=== PATIENT | female | born 1985 | race Caucasian/White ===

== ENCOUNTER → 2016-09-12 | Outpatient (CLI) | payer BC ==
[~2016-09-12] MED LIST: DIPH25CA65 PO; DXY100 PO; IBUP-103 PO; MOME6000 NAE; OXYC-57 PO; OXYC5TAB PO
--- NOTE | 2016-09-12 13:31 | DIAGNOSTIC IMAGING REPORT ---
ULTRASOUND OF THE THYROID GLAND CLINICAL HISTORY: Lymphadenopathy. COMPARISON STUDY: No priors. TECHNIQUE: Real-time, grayscale, and color flow sonography of the thyroid gland is performed utilizing a high-frequency linear transducer. Images are reviewed in the transverse and longitudinal planes. FINDINGS: Right lobe: The right lobe of the thyroid gland is normal in size and homogeneous in echotexture, measuring 4.4 x 1.6 x 1.2 cm. Left lobe: The left lobe of the thyroid gland is normal in size and homogeneous in echotexture, measuring 4.3 x 1.5 x 1.2 cm. Isthmus: The thyroid isthmus is normal in appearance and measures 0.3 cm in AP diameter. Soft tissues: Survey images of the stranding soft tissues show scattered benign-appearing cervical lymph nodes. These measure up to 7 mm in short axis. IMPRESSION: 1. Unremarkable sonographic assessment of the thyroid gland. 2. There are scattered benign-appearing cervical lymph nodes incidentally identified. Clinical follow-up only is recommended. Electronically signed by: Randell Lundberg M.D. 09/12/2016 1:30 PM Dictated Date/Time: 09/12/2016 1:29 PM
== END | disposition home or self-care (01) ==
LOC: C.ULTR 12:39
PROVIDERS: ATTEND Nurse Practitioner Family
DX: E01.0 Iodine-deficiency related diffuse (endemic) goiter (principal); R59.9 Enlarged lymph nodes, unspecified

== ENCOUNTER → 2016-09-12 | Outpatient (CLI) | payer BC ==
[2016-09-12 13:15] LABS: BASO % 0.5 %; BASO ABS # 0.03 K/uL (0-0.2); COMPLETE YES; EOS % 1.3 %; HEMATOCRIT 37.7 % (37-47); IG% 0.2 %; LYMPH % 23.4 %; LYMPH ABS # 1.41 K/uL (1.2-3.4); MEAN CELL VOLUME 87.3 fL (80-100); MEAN CORPUSCULAR HEMOGLOBIN 29.9 pg (25-34); MEAN CORPUSCULAR HGB CONC 34.2 g/dl (32-36); MEAN PLATELET VOLUME 10.6 fL (7.4-10.4); MONO % 4.6 %; PLATELET COUNT 259 K/uL (130-400); RED BLOOD COUNT 4.32 M/uL (4.2-5.4); WHITE BLOOD COUNT 6.03 K/uL (4.8-10.8)
[2016-09-12 13:51] LABS: ALB/GLOB RATIO 1.1 (0.9-2); ALKALINE PHOSPHATASE 46 U/L (45-117); ALT/SGPT 20 U/L (12-78); AST/SGOT 10 U/L (15-37); BLOOD UREA NITROGEN 19 mg/dl (7-18); BUN/CREATININE RATIO 26.1 (10-20); CALCIUM 8.9 mg/dl (8.5-10.1); CARBON DIOXIDE 25 mmol/L (21-32); CHLORIDE 105 mmol/L (98-107); CREATININE 0.71 mg/dl (0.60-1.20); GLUCOSE 77 mg/dl (70-99); POTASSIUM 3.7 mmol/L (3.5-5.1); SODIUM 140 mmol/L (136-145)
[2016-09-12 13:54] LABS: RUBELLA SCREEN IgG (AT CCH) IMMUNE (IMMUNE)
[2016-09-12 14:22] LABS: LYME DISEASE AB IGG NEG (NEG); LYME DISEASE AB IGM NEG (NEG)
[2016-09-15 01:42] LABS: VARICELLA ZOS VIR IGG VALUE <0.91 INDEX
--- NOTE | 2016-09-19 10:11 | CODING QUERY MEDICAL NECESSITY ---
SUPPORTING DIAGNOSIS NEEDED A supporting diagnosis is required for the test/procedure performed on this patient in order for us to be reimbursed by the patient's insurance. Please provide a supporting diagnosis for the following test/procedure listed below next to the test name along with your signature. *If there is no additional diagnosis for this patient that would support the following test/procedure please document that below next to the test/procedure. Test(s)/Procedure(s) that require a supporting diagnosis: DOS 09/12 * Vitamin D DIAGNOSIS: * RPR DIAGNOSIS: Provider Signature: Date: Thank you Mera Ley Health Information Management Once completed, please kindly fax back to [phone] For questions please call [phone]
== END | disposition home or self-care (01) ==
LOC: C.LAB1850 11:46
PROVIDERS: ATTEND Nurse Practitioner Family
DX: Z01.83 Encounter for blood typing (principal); Z11.59 Encounter for screening for other viral diseases; Z11.3 Encounter for screening for infections with a predominantly sexual mode of transmission; Z11.4 Encounter for screening for human immunodeficiency virus [HIV]; Z13.0 Encounter for screening for diseases of the blood and blood-forming organs and certain disorders involving the immune mechanism; Z13.21 Encounter for screening for nutritional disorder; R59.9 Enlarged lymph nodes, unspecified; E01.0 Iodine-deficiency related diffuse (endemic) goiter

== ENCOUNTER 2016-11-13 05:27 | Day surgery (SDC) | payer BC ==
[2016-10-25 09:31] VITALS: BMI 25.0
--- NOTE | 2016-10-25 09:54 | PAT Medication Instructions ---
Service Date October 25, 2016. Current Home Medication List Diphenhydramine Hcl (Benadryl Allergy), 1 CAP PO DAILY PRN for prn Ibuprofen Tab (Advil), 200-600 MG PO Q4H PRN for Pain Mometasone Furoate (Nasal) (Mometasone Furoate), 1-2 SPRAYS JOHN PRN Medication Instructions For Your Scheduled Surgery - Check with surgeon for instructions: Ibuprofen Tab (Advil), 200-600 MG PO Q4H PRN for Pain - Hold the following medications the morning of surgery: Diphenhydramine Hcl (Benadryl Allergy), 1 CAP PO DAILY PRN for prn - Take the following medications the morning of surgery with a sip of water: Mometasone Furoate (Nasal) (Mometasone Furoate), 1-2 SPRAYS JOHN PRN - Take the following medications as scheduled the night before surgery: Mometasone Furoate (Nasal) (Mometasone Furoate), 1-2 SPRAYS JOHN PRN Diphenhydramine Hcl (Benadryl Allergy), 1 CAP PO DAILY PRN for prn If you have any questions please call us at [phone] (Kathleen Corona PA-C) or [phone] or [phone]
[2016-10-25 10:49] LABS: BASO % 0.5 %; BASO ABS # 0.03 K/uL (0-0.2); COMPLETE YES; EOS % 2.2 %; HEMATOCRIT 42.8 % (37-47); IG% 0.2 %; LYMPH ABS # 1.87 K/uL (1.2-3.4); MEAN CELL VOLUME 88.8 fL (80-100); MEAN CORPUSCULAR HEMOGLOBIN 29.3 pg (25-34); MEAN CORPUSCULAR HGB CONC 32.9 g/dl (32-36); MEAN PLATELET VOLUME 10.6 fL (7.4-10.4); MONO % 6.5 %; NEUT % 59.6 %; PLATELET COUNT 267 K/uL (130-400); RED BLOOD COUNT 4.82 M/uL (4.2-5.4); WHITE BLOOD COUNT 6.03 K/uL (4.8-10.8)
[~2016-11-13] VITALS: Ht 157.5 cm; Wt 63.5 kg
[~2016-11-13 05:27] MED LIST changes: -DXY100 PO; -OXYC-57 PO; -OXYC5TAB PO
[2016-11-13 05:59] VITALS: BP 135/73; PULSE 76; TEMP 36.8; O2SAT 100; Ht 157.5 cm; Wt 63.5 kg
[2016-11-13] MEDS ORDERED: DOXYCYCLINE HYCLATE 100 MG CAP PO SCH ×2 (06:00→08:00)
[2016-11-13] MEDS ORDERED: LACTATED RINGER'S 1000ML 1,000 ML IV SCH ×2 (06:00)
[2016-11-13] MEDS ORDERED: ONDANSETRON INJ 2 MG/ML 2 ML VIAL ONE (06:40)
[2016-11-13] MEDS ORDERED: LIDOCAINE HCL 2% 2 ML VIAL (20MG/ML) ONE (06:40)
[2016-11-13] MEDS ORDERED: NEOSTIGMINE METHYLSULFATE 5 MG/5 ML SYR ONE (06:40)
[2016-11-13] MEDS ORDERED: PROPOFOL IV EMULSION 10 MG/ML 20 ML VIAL IV ONE (06:40)
[2016-11-13] MEDS ORDERED: MIDAZOLAM HCL 1 MG/ML 2ML VIAL ONE ×2 (06:40→07:23)
[2016-11-13] MEDS ORDERED: DEXAMETHASONE SOD INJ 4 MG/ML VIAL ONE (06:40)
[2016-11-13] MEDS ORDERED: ROCURONIUM BROMIDE 10 MG/ML 5 ML VIAL ONE (06:40)
[2016-11-13] MEDS ORDERED: GLYCOPYRROLATE INJ 0.2 MG/ML VIAL ONE ×2 (06:40→08:19)
[2016-11-13] MEDS ORDERED: FENTANYL CITRATE INJ 50 MCG/1 ML 2 ML VIAL ONE ×2 (06:40→07:58)
--- NOTE | 2016-11-13 07:06 | History & Physical Bridge Note ---
H&P Re-Evaluation Bridge Note: I have examined the patient, reviewed the History & Physical and in the interval since the performance of the History & Physical I have noted the following changes of clinical significance: No changes noted
[2016-11-13] MEDS ORDERED: METHYLENE BLUE 0.5% 10 ML VIAL ONE (07:10)
[2016-11-13] MEDS ORDERED: BUPIVACAINE 0.5 % 5 MG/1 ML MPF 30ML VIAL ONE (07:10)
[2016-11-13] MEDS ORDERED: ONDANSETRON INJ 2 MG/ML 2 ML VIAL IV PRN ×2 (07:30→08:30)
[2016-11-13] MEDS ORDERED: EpHEDrine SULFATE INJ 50 MG/ML AMP IV PRN (07:30)
[2016-11-13] MEDS ORDERED: ATROPINE SULFATE 0.1 MG/ML 5ML SYR IV PRN (07:30)
[2016-11-13] MEDS ORDERED: HYDROmorphone INJ 1 MG/ML SYR IV PRN (07:30)
[2016-11-13] MEDS ORDERED: PROMETHAZINE HCL INJ 6.25 MG in SODIUM CHLORIDE 0.9% 50ML 50 ML IV PRN (07:30)
[2016-11-13] MEDS ORDERED: SODIUM CHLORIDE 0.9% 1000ML 1,000 ML IV SCH (08:26)
--- NOTE | 2016-11-13 08:27 | [facility] Post Operative Brief Note ---
Immediate Operative Summary Operative Date November 13, 2016. Pre-Operative Diagnosis Tubal disease and pain Post-Operative Diagnosis Same as preop Procedure(s) Performed Robotic-assisted laparoscopic Bilateral Salpingectomy Surgeon Dr. Bush Full Stack Engineer Surgeon(s) . Estimated Blood Loss 5 cc Findings Bilateral dilated tubes, bilateral paratubal cysts Specimens A: right and left fallopian tubes Drains None Anesthesia General Complication(s) None Disposition Recovery Room / PACU
--- NOTE | 2016-11-13 08:28 | Discharge Instructions ---
Discharge Instructions Date of Service November 13, 2016. Admission Reason for Admission: Hydrosalpinx Discharge Discharge Diagnosis / Problem: pelvic pain Discharge Goals Goal(s): Routine recovery after surgery Activity Recommendations Activity Limitations: per Instructions/Follow-up section . Instructions / Follow-Up Instructions / Follow-Up ACTIVITY RECOMMENDATIONS: * Rest the first 2-3 days. You should be back to your normal activity levels by day 3. * No heavy lifting for 2 weeks. * No intercourse, tampons or douching for 1-2 weeks. * You may shower the next day. * Do not drive anytime that you are taking narcotic pain medicines. RETURN TO SCHOOL/WORK: * May return to school or work after 2-3 days. DIET: Nausea may occur in the immediate post-operative period. If so, take clear liquids such as tea, bouillon, apple juice until all nausea has subsided, then resume usual diet. MEDICATIONS: Resume previous medications unless instructed otherwise by your surgeon. Ibuprofen 200mg 2-3 tablets every 4-6 hours as needed -- OR -- Aleve 2 tablets every 8-12 hours as needed for post-operative discomfort Medications are over the counter. Tylenol may be used if above medications are contraindicated or not preferred. Medication should be taken with food or milk. Do not take on an empty stomach. SPECIAL CARE INSTRUCTIONS: * Check temperature twice daily for one week. report any elevation over 101 degrees. * You may experience some vagina spotting and/or bleeding. This is normal for 1 -2 weeks and should not be heavier than a normal period. If it is unusual in amount, call your physician. * Post-operative discomfort may consist of a sore throat, a "bloated" feeling and pain in the shoulders. these are normal symptoms, which usually only last for 2-3 days. * Remove band-aids tomorrow and shower. There is no need to replace band-aids unless there is drainage or discomfort. FOLLOW UP VISIT: Call your doctor's office for a post-operative 2 week visit if not already scheduled. Current Hospital Diet Patient's current hospital diet: Discharge Diet Recommended Diet: Regular Diet Procedures Procedures Performed: Robotic-assisted laparoscopic Bilateral Salpingectomy Pending Studies Studies pending at discharge: no Medical Emergencies . Who to Call and When: Medical Emergencies: If at any time you feel your situation is an emergency, please call 911 immediately. . Non-Emergent Contact Non-Emergency issues call your: Refrigeration Mechanic . . "Provider Documentation" section prepared by Andrew Bush. . VTE Core Measure Inpt VTE Proph given/why not?: Treatment not indicated
[2016-11-13] MEDS ORDERED: OXYC-57 PO (08:29)
[2016-11-13] MEDS ORDERED: DXY100 PO (08:29)
[2016-11-13] MEDS ORDERED: PROMETHAZINE HCL INJ 25 MG in SODIUM CHLORIDE 0.9% 50ML 50 ML IV PRN (08:30)
[2016-11-13] MEDS ORDERED: OXYCODONE/ACETAMINOPHEN 5-325 TAB PO PRN ×2 (08:30)
[2016-11-13] MEDS ORDERED: KETOROLAC TROMETHAMINE 30 MG/ML VIAL IV. PRN (08:30)
[2016-11-13] MEDS ORDERED: IBUPROFEN 600 MG TAB PO PRN (08:30)
[2016-11-13] MEDS: FENTANYL CITRATE INJ 50 MCG/1 ML 2 ML VIAL IV PRN ×3 (08:46→08:56)
--- NOTE | 2016-11-13 09:35 | OPERATIVE REPORT ---
DATE OF OPERATION: 11/13/2016 PREOPERATIVE DIAGNOSES: Fallopian tube disease and pelvic pain. POSTOPERATIVE DIAGNOSES: Same. PROCEDURE: Robotically assisted bilateral salpingectomy. SURGEON: Dr. Bush. PROJECT LEADER: None. ESTIMATED BLOOD LOSS: 5 mL. FINDINGS: Bilateral dilated tubes and paratubal cysts. SPECIMENS: Right and left fallopian tubes. DRAINS: None. ANESTHETIC: General. COMPLICATIONS: None. DISPOSITION: Recovery room. DESCRIPTION OF PROCEDURE: The patient was given a general anesthetic, prepped and draped in dorsolithotomy position; doxycycline had been given preoperatively orally. Shaver catheter placed in her bladder and a cervical acorn manipulator placed in the cervix. Gloves changed and the same umbilical incision was entered with scalpel, open Ibrahima technique, we cut down carefully to subcutaneous fat to the fascia was opened in midline, splitting the rectus muscles and entering the peritoneal cavity without difficulty. Blunt-tipped Ibrahima trocar then placed. Balloon inflated. CO2 gas used to inflate the abdomen. FINDINGS: Upper abdomen before Trendelenburg appeared normal, no bleeding or sign of injury. Deep Trendelenburg position then obtained and was able to view the pelvis. Both fallopian tubes were dilated and also had large paratubal cyst as well. Per discussions with the patient because of pain and abnormal tubes, she wished to have fallopian tubes removed. We placed 2 laparoscopic ports, 1 in the left, 1 in the right, 8 mm robotic ports and then docked the robot using bipolar [place] in arm 2 and monopolar holley in arm 1. I was able to carefully remove the tube so as not to compromise the blood supply to either ovary. We started first with the right fallopian tube and then the left. We removed as much tube as possible down to the level of the uterus. These were then placed in the pelvis and the robot was undocked. Using a 5 mm camera to one of the robotic ports, I was able to then place a 10 mm bag and both tubes were then placed in this and removed the bag. Once the tubes were removed, on reinspection again no bleeding was visualized, gas allowed to escape, and ports removed. Incisions all injected with 0.5% Marcaine. Fascia closed carefully with 0 Vicryl in the umbilical incision and then deep subcutaneous fat sutures and then 4-0 subcuticular Monocryl closures. Sponge and instrument counts were correct. I attest to the content of the Intraoperative Record and any orders documented therein. Any exceptions are noted below. MTDD
[2016-11-13] MEDS ORDERED: KETOROLAC TROMETHAMINE 30 MG/ML VIAL ONE (09:45)
--- NOTE | 2016-11-13 09:49 | Anesthesiology Progress Note ---
Anesthesia Post Op Note Date & Time November 13, 2016 at 09:50 Vital Signs Pain Intensity: 3 Vital Signs Past 12 Hours Date Time Temp Pulse Resp B/P Pulse Ox O2 Delivery O2 Flow Rate FiO2 11/13/16 09:15 36.4 75 12 105/65 100 Nasal Cannula 2 11/13/16 09:05 61 10 102/67 97 Room Air 11/13/16 08:55 60 13 106/73 100 Mask 10 11/13/16 08:45 67 19 113/78 100 Mask 10 11/13/16 08:38 36.0 87 17 112/75 100 Mask 10 11/13/16 05:59 36.8 76 18 135/73 100 Room Air Notes Mental Status: alert / awake / arousable, participated in evaluation Pt Amnestic to Procedure: Yes Nausea / Vomiting: adequately controlled Pain: adequately controlled Airway Patency, RR, SpO2: stable & adequate BP & HR: stable & adequate Hydration State: stable & adequate Anesthetic Complications: no major complications apparent
[2016-11-13] MEDS ORDERED: OXYCODONE/ACETAMINOPHEN 5-325 TAB ONE (10:07)
[2016-11-13 10:30] VITALS: BP 99/55; PULSE 74; TEMP 36.4; O2SAT 98
== END 2016-11-13 10:40 | disposition home or self-care (01) ==
LOC: C.ACU 05:27
PROVIDERS: ATTEND Obstetrics & Gynecology
DX: N83.9 Noninflammatory disorder of ovary, fallopian tube and broad ligament, unspecified (principal); N80.9 Endometriosis, unspecified; D28.2 Benign neoplasm of uterine tubes and ligaments; E66.9 Obesity, unspecified; Z80.42 Family history of malignant neoplasm of prostate; F17.210 Nicotine dependence, cigarettes, uncomplicated; Z68.25 Body mass index [BMI] 25.0-25.9, adult; Z98.818 Other dental procedure status; Z90.89 Acquired absence of other organs
CPT/HCPCS: 58661; S2900

== ENCOUNTER → 2016-12-25 | Outpatient (CLI) | payer BC ==
[~2016-12-25] MED LIST changes: +DXY100 PO; +OXYC-57 PO
--- NOTE | 2016-12-25 13:00 | DIAGNOSTIC IMAGING REPORT ---
RENAL ULTRASOUND HISTORY: Pain R10.2 Pelvic pain in female with pelvic pain when she has a fu COMPARISON: None. FINDINGS: Right kidney: Maximum dimension 10.3 cm. No evidence for hydronephrosis. Normal corticomedullary differentiation and cortical thickness. Left kidney: Maximum dimension 11.1 cm. No evidence for hydronephrosis. Normal corticomedullary differentiation and cortical thickness. Bladder: No bladder wall thickening. The bilateral ureteral jets were identified. IMPRESSION: Normal renal ultrasound. Electronically signed by: Mina Jacobsen M.D. 12/25/2016 12:59 PM Dictated Date/Time: 12/25/2016 12:55 PM
== END | disposition home or self-care (01) ==
LOC: C.ULTR 12:30
PROVIDERS: ATTEND Family Medicine
DX: R10.2 Pelvic and perineal pain (principal)

== ENCOUNTER → 2017-02-12 | Outpatient (CLI) | payer BC | END | disposition home or self-care (01) | LOC: C.LABSPEC 17:05 | PROVIDERS: ATTEND Nurse Practitioner Family | DX: R10.2 Pelvic and perineal pain (principal); R30.0 Dysuria ==

== ENCOUNTER → 2017-03-13 | Outpatient (CLI) | payer BC | END | disposition home or self-care (01) | LOC: C.LAB1850 08:07 | PROVIDERS: ATTEND Specialist | DX: Z31.41 Encounter for fertility testing (principal); O09.00 Supervision of pregnancy with history of infertility, unspecified trimester; Z3A.00 Weeks of gestation of pregnancy not specified ==

== ENCOUNTER → 2017-03-19 | Outpatient (CLI) | payer BC | END | disposition home or self-care (01) | LOC: C.LAB 12:22 | PROVIDERS: ATTEND Specialist | DX: Z31.41 Encounter for fertility testing (principal) ==

== ENCOUNTER → 2017-04-13 | Outpatient (CLI) | payer BC | END | disposition home or self-care (01) | LOC: C.LAB 09:25 | PROVIDERS: ATTEND Specialist | DX: O09.00 Supervision of pregnancy with history of infertility, unspecified trimester (principal); Z3A.00 Weeks of gestation of pregnancy not specified ==

== ENCOUNTER → 2017-05-03 | Outpatient (CLI) | payer BC | END | disposition home or self-care (01) | LOC: C.LAB1850 08:12 | PROVIDERS: ATTEND Specialist | DX: Z31.41 Encounter for fertility testing (principal); O09.00 Supervision of pregnancy with history of infertility, unspecified trimester ==

== ENCOUNTER → 2017-05-16 | Outpatient (CLI) | payer BC | END | disposition home or self-care (01) | LOC: C.LAB1850 08:15 | PROVIDERS: ATTEND Specialist | DX: Z31.41 Encounter for fertility testing (principal) ==

== ENCOUNTER → 2017-06-06 | Outpatient (CLI) | payer BC | END | disposition home or self-care (01) | LOC: C.LAB1850 09:42 | PROVIDERS: ATTEND Specialist | DX: O09.00 Supervision of pregnancy with history of infertility, unspecified trimester (principal); Z3A.00 Weeks of gestation of pregnancy not specified ==

== ENCOUNTER → 2017-06-08 | Outpatient (CLI) | payer BC | END | disposition home or self-care (01) | LOC: C.LAB1850 11:44 | PROVIDERS: ATTEND Specialist | DX: O09.00 Supervision of pregnancy with history of infertility, unspecified trimester (principal) ==

== ENCOUNTER → 2017-06-28 | Outpatient (CLI) | payer OTHER | END | disposition home or self-care (01) | LOC: C.PAPS 14:36 | PROVIDERS: ATTEND Obstetrics & Gynecology | DX: Z12.4 Encounter for screening for malignant neoplasm of cervix (principal) ==

== ENCOUNTER → 2017-06-28 | Outpatient (CLI) | payer OTHER ==
[~2017-06-28] MED LIST changes: +ACET-1175 PO; +FERR1TAB23 PO; +MTR600X PO; +PRENTAB26 PO
[2017-06-28 11:27] LABS: BASO % 0.3 %; BASO ABS # 0.03 K/uL (0-0.2); EOS ABS # 0.56 K/uL (0-0.5); HEMATOCRIT 40.6 % (37-47); IG# 0.03 K/uL (0.00-0.02); LYMPH % 16.1 %; MEAN CELL VOLUME 87.3 fL (80-100); MEAN CORPUSCULAR HEMOGLOBIN 30.1 pg (25-34); MEAN CORPUSCULAR HGB CONC 34.5 g/dl (32-36); MEAN PLATELET VOLUME 11.5 fL (7.4-10.4); MONO % 4.7 %; MONO ABS # 0.44 K/uL (0.11-0.59); NEUT % 72.6 %; NEUT ABS # 6.73 K/uL (1.4-6.5); PLATELET COUNT 283 K/uL (130-400); RED CELL DISTRIBUTION WIDTH CV 12.7 % (11.5-14.5); RED CELL DISTRIBUTION WIDTH SD 40.4 fL (36.4-46.3); WHITE BLOOD COUNT 9.29 K/uL (4.8-10.8)
== END | disposition home or self-care (01) ==
LOC: C.LAB1850 09:52
PROVIDERS: ATTEND Obstetrics & Gynecology
DX: O09.811 Supervision of pregnancy resulting from assisted reproductive technology, first trimester (principal); Z3A.00 Weeks of gestation of pregnancy not specified

== ENCOUNTER → 2017-08-23 | Outpatient (CLI) | payer OTHER ==
[~2017-08-23] MED LIST changes: -ACET-1175 PO; -FERR1TAB23 PO; -MTR600X PO; -PRENTAB26 PO
== END | disposition home or self-care (01) ==
LOC: C.LAB1850 10:26
PROVIDERS: ATTEND Obstetrics & Gynecology
DX: O09.812 Supervision of pregnancy resulting from assisted reproductive technology, second trimester (principal); Z3A.00 Weeks of gestation of pregnancy not specified

== ENCOUNTER → 2018-01-10 | Outpatient (CLI) | payer OTHER ==
[~2018-01-10] MED LIST changes: +ACET-1175 PO; -DXY100 PO; +FERR1TAB23 PO; -IBUP-103 PO; +MTR600X PO; +PRENTAB26 PO
== END | disposition home or self-care (01) ==
LOC: C.LABSPEC 10:41
PROVIDERS: ATTEND Obstetrics & Gynecology
DX: O30.003 Twin pregnancy, unspecified number of placenta and unspecified number of amniotic sacs, third trimester (principal); Z3A.00 Weeks of gestation of pregnancy not specified

== ENCOUNTER 2018-01-14 05:14 | Inpatient (IN) | payer OTHER ==
--- NOTE | 2018-01-08 11:35 | PAT Medication Instructions ---
Service Date Jan 08, 2018. Current Home Medication List Acetaminophen (Tylenol), 325 MG PO for Pain Diphenhydramine Hcl (Benadryl Allergy), 1 CAP PO DAILY PRN for prn Ferrous Sulfate (Iron), 1 TAB PO noon Mometasone Furoate (Nasal) (Mometasone Furoate), 1-2 SPRAYS JOHN PRN Multivit/Min/Iron/Fol Ac/Pren ( Vitamin), 1 TAB PO QAM Medication Instructions For Your Scheduled Surgery - Hold the following medications the morning of surgery: Acetaminophen (Tylenol), 325 MG PO for Pain Diphenhydramine Hcl (Benadryl Allergy), 1 CAP PO DAILY PRN for prn Multivit/Min/Iron/Fol Ac/Pren ( Vitamin), 1 TAB PO QAM - Take the following medications the morning of surgery: Mometasone Furoate (Nasal) (Mometasone Furoate), 1-2 SPRAYS JOHN PRN (if needed) - Take the following medications as scheduled the night before surgery: Acetaminophen (Tylenol), 325 MG PO for Pain (if needed) Diphenhydramine Hcl (Benadryl Allergy), 1 CAP PO DAILY PRN for prn (if needed) Ferrous Sulfate (Iron), 1 TAB PO noon If you have any questions please call us at [phone] or [phone] or [phone]
[2018-01-08 12:38] LABS: BASO % 0.2 %; BASO ABS # 0.03 K/uL (0-0.2); EOS % 0.8 %; HEMATOCRIT 36.9 % (37-47); HEMOGLOBIN 12.2 g/dL (12.0-16.0); IG# 0.23 K/uL (0.00-0.02); LYMPH % 15.3 %; LYMPH ABS # 1.96 K/uL (1.2-3.4); MEAN CELL VOLUME 87.9 fL (80-100); MEAN CORPUSCULAR HGB CONC 33.1 g/dl (32-36); MEAN PLATELET VOLUME 12.9 fL (7.4-10.4); MONO % 5.4 %; MONO ABS # 0.69 K/uL (0.11-0.59); NEUT % 76.5 %; NEUT ABS # 9.79 K/uL (1.4-6.5); PLATELET COUNT 159 K/uL (130-400); RED CELL DISTRIBUTION WIDTH CV 16.1 % (11.5-14.5); RED CELL DISTRIBUTION WIDTH SD 51.2 fL (36.4-46.3)
--- NOTE | 2018-01-11 17:46 | HISTORY & PHYSICAL EXAMINATION ---
DATE OF ADMISSION: 01/14/2018 HISTORY OF PRESENT ILLNESS: Whit's due date is 02/07/2017, she will be 36 weeks and 4 days for scheduled section. She has a twin gestation. The reason this is speed up and being done prior to 38 weeks is that she has cholestasis of , thus recommendation is delivery between 36 and 37 weeks. The patient understands the rationale for delivery. HISTORY: As mentioned, she has twin gestation. She has been monitored closely for growth and the first baby is in breech position, thus, the recommendation for section. She has been diagnosed of cholestasis of with bile salts being elevated; thus, the recommendation for early delivery. PAST MEDICAL HISTORY: She is healthy. PAST SURGICAL HISTORY: She has had a prior laparoscopy for pelvic pain. Dictation ends here. This was cutoff mid dictation, Pls see other H+P for full note MTDD
--- NOTE | 2018-01-11 17:49 | HISTORY & PHYSICAL EXAMINATION ---
DATE OF ADMISSION: 01/14/2018 Her due date is 02/07/2018. HISTORY OF PRESENT ILLNESS: Whit has a twin gestation and intrahepatic cholestasis of . The recommendation for delivery is between 36 and 37 weeks and she has been scheduled to be delivered on the day of 01/14/2018. The as mentioned has been complicated by intrahepatic cholestasis of and also twin gestation in which the first baby is in breech presentation. The babies have grown well and she has not had any other complications of . HISTORY: She is Rh negative and has had negative echocardiogram on her testing as well. MEDICAL HISTORY: History of depression and piriformis syndrome. PAST SURGICAL HISTORY: Prior laparoscopy for pelvic pain. PAST OBSTETRICAL HISTORY: No prior pregnancies. REVIEW OF SYSTEMS: Negative. PHYSICAL EXAMINATION: VITAL SIGNS: Stable. She is afebrile. Weight is 194 pounds. CHEST: Clear. CARDIOVASCULAR: Normal rate and rhythm. No audible murmur. ABDOMEN: Gravid. heart is confirmed by ultrasound. First baby has fluctuated between breech and vertex position. CERVIX: Closed and 50%. IMPRESSION AND PLAN: The patient has intrahepatic cholestasis of . Recommendation is delivery between 36 and 37 weeks, but she will be 36 weeks and 4 days on 01/14/2018 and is scheduled for . Reviewed the risks including bleeding, infection, injury to bowel, bladder, ureter, vessels, deep vein thrombosis, pulmonary embolus, and possible injury to the babies. We discussed increased risks also with twin gestation including with bleeding. The patient was offered vaginal delivery and declined and has made arrangements for section, full informed consent and she is aware of her other options. MILLICENT
[2018-01-14] VITALS (12 sets, daily range): BP systolic 120–132; BP diastolic 76–89; PULSE 79–90; TEMP 36.8–37.2; O2SAT 98–100; Ht 157.5 cm; Wt 89.5 kg
[~2018-01-14] VITALS: Ht 157.5 cm; Wt 89.5 kg
[~2018-01-14 05:14] MED LIST changes: -MTR600X PO; -OXYC-57 PO
[2018-01-14] MEDS ORDERED: LACTATED RINGER'S 1000ML 1,000 ML IV ONE (05:17)
[2018-01-14] MEDS ORDERED: CITRIC ACID/SODIUM CITRATE 15 ML UDC PO ONE (05:30)
[2018-01-14 05:51] LABS: BASO % 0.1 %; BASO ABS # 0.01 K/uL (0-0.2); EOS % 0.6 %; EOS ABS # 0.09 K/uL (0-0.5); HEMATOCRIT 37.6 % (37-47); HEMOGLOBIN 12.6 g/dL (12.0-16.0); IG# 0.24 K/uL (0.00-0.02); LYMPH % 17.6 %; LYMPH ABS # 2.65 K/uL (1.2-3.4); MEAN CELL VOLUME 86.2 fL (80-100); MEAN CORPUSCULAR HEMOGLOBIN 28.9 pg (25-34); MEAN CORPUSCULAR HGB CONC 33.5 g/dl (32-36); MEAN PLATELET VOLUME 12.4 fL (7.4-10.4); MONO % 5.6 %; MONO ABS # 0.85 K/uL (0.11-0.59); NEUT % 74.5 %; NEUT ABS # 11.22 K/uL (1.4-6.5); PLATELET COUNT 160 K/uL (130-400); RED CELL DISTRIBUTION WIDTH SD 50.8 fL (36.4-46.3); WHITE BLOOD COUNT 15.06 K/uL (4.8-10.8)
[2018-01-14] MEDS ORDERED: CEFAZOLIN IV 2,000 MG in SYRINGE 0 ML IV ONE (06:00)
[2018-01-14] MEDS ORDERED: MoRPHine SULFATE PF 1 MG/ML 10 ML AMP/VIAL ONE (07:22)
[2018-01-14] MEDS ORDERED: FENTANYL CITRATE INJ 50 MCG/1 ML 2 ML VIAL ONE (07:23)
[2018-01-14] MEDS ORDERED: KETOROLAC TROMETHAMINE 30 MG/ML VIAL ONE (08:24)
[2018-01-14] MEDS ORDERED: PHENYLEPHRINE 100MCG/ML 5ML SYR ONE (08:24)
[2018-01-14] MEDS ORDERED: OXYTOCIN INJ 10 UNITS/ML VIAL ONE (08:24)
[2018-01-14] MEDS ORDERED: EpHEDrine SULFATE 50MG/5ML SYR ONE (08:24)
[2018-01-14] MEDS ORDERED: ONDANSETRON INJ 2 MG/ML 2 ML VIAL ONE (08:24)
[2018-01-14] MEDS ORDERED: LACTATED RINGER'S 1000ML 1,000 ML IV SCH (08:26)
--- NOTE | 2018-01-14 08:26 | [facility] Post Operative Brief Note ---
Immediate Operative Summary Operative Date Jan 14, 2018. Pre-Operative Diagnosis Intrahepatic cholestasis of Intrauterine at 36.4 weeks, twin gestation Low segment transverse caesarean section delivery Post-Operative Diagnosis same Procedure(s) Performed Low segment transverse C/S Surgeon Dr Frank Bush Revenue Audit Clerk Surgeon(s) Dr. Montoya Estimated Blood Loss 700ml Findings Consistent with Post-Op Diagnosis Specimens Cord gases, placenta Drains Shaver Anesthesia Type L&D Only EPID Exist Complication(s) none Disposition Accompanied Pt To Recover: no Disposition: L&D
[2018-01-14] MEDS ORDERED: BENZOCAINE 20% AER SPR 82.5 GM CAN EXT PRN (08:30)
[2018-01-14] MEDS ORDERED: LANOLIN OINT EXT PRN (08:30)
[2018-01-14] MEDS ORDERED: HYDROCORTISONE ACETATE 25 MG SUPP PR PRN (08:30)
[2018-01-14] MEDS ORDERED: KETOROLAC TROMETHAMINE 30 MG/ML VIAL IV. PRN (08:30)
[2018-01-14] MEDS ORDERED: SUPERCREAM 0.870 % 15GM JAR EXT PRN (08:30)
[2018-01-14] MEDS ORDERED: SENNA 8.6 MG TAB PO PRN (08:30)
[2018-01-14] MEDS ORDERED: PROMETHAZINE HCL INJ 25 MG in SODIUM CHLORIDE 0.9% 50ML 50 ML IV PRN (08:30)
[2018-01-14] MEDS ORDERED: DiphenhydrAMINE HCL 50 MG/ML VIAL IV PRN ×2 (08:30→09:00)
[2018-01-14] MEDS ORDERED: MAGNESIUM HYDROXIDE SUSP 30 ML UDC PO PRN (08:30)
[2018-01-14] MEDS ORDERED: MEPERIDINE HCL 50 MG/ML CARP IV PRN ×2 (08:30)
[2018-01-14] MEDS ORDERED: ZOLPIDEM TARTRATE 5 MG TAB PO PRN (08:30)
[2018-01-14] MEDS ORDERED: ONDANSETRON INJ 2 MG/ML 2 ML VIAL IV PRN ×2 (08:30→09:00)
[2018-01-14] MEDS ORDERED: OXYCODONE/ACETAMINOPHEN 5-325 TAB PO PRN ×2 (08:30)
[2018-01-14] MEDS ORDERED: SODIUM CHLORIDE 0.9% 1000ML 1,000 ML IV PRN (08:57)
[2018-01-14] MEDS ORDERED: NALOXONE HCL INJ 1 MG in SODIUM CHLORIDE 0.9% 1000ML 1,000 ML IV PRN (08:57)
[2018-01-14] MEDS ORDERED: NALOXONE HCL INJ 0.08 MG in SYRINGE 1.8 ML IV PRN (08:57)
[2018-01-14] MEDS ORDERED: LACTATED RINGER'S 1000ML 500 ML IV PRN (08:57)
[2018-01-14] MEDS ORDERED: DC INTRASPINAL MORPHINE SCH (09:00)
[2018-01-14] MEDS ORDERED: PROMETHAZINE HCL INJ 6.25 MG in SODIUM CHLORIDE 0.9% 50ML 50 ML IV PRN (09:00)
[2018-01-14] MEDS ORDERED: EpHEDrine SULFATE INJ 50 MG/ML AMP IV PRN (09:00)
[2018-01-14] MEDS ORDERED: MoRPHine SULFATE 4 MG/ML 1 ML CARP\\VIAL IV PRN (09:00)
[2018-01-14] MEDS ORDERED: NALOXONE HCL 0.4 MG/1 ML VIAL/CARP IV PRN (09:00)
[2018-01-14] MEDS ORDERED: NO NARCOTICS OR SEDATIVES SCH (09:00)
[2018-01-14] MEDS ORDERED: MoRPHine SULFATE PF 1 MG/ML 10 ML AMP/VIAL EPI PRN (09:00)
[2018-01-14] MEDS ORDERED: NALBUPHINE HCL INJ 10 MG/ML 10ML VIAL IV PRN (09:00)
[2018-01-14] MEDS: SIMETHICONE 80 MG CHEW PO SCH ×4 (09:00→19:58)
--- NOTE | 2018-01-14 10:07 | OPERATIVE REPORT ---
DATE OF OPERATION: 01/14/2018 PREOPERATIVE DIAGNOSES: 36 weeks and 4 days, twin gestation. The patient requests section. Intrahepatic cholestasis of . POSTOPERATIVE DIAGNOSIS: 36 weeks and 4 days, twin gestation. The patient requests section. Intrahepatic cholestasis of . PROCEDURE: Low-segment transverse section. SURGEON: Andrew Bush MD PIE BOTTOMER: Jan. ESTIMATED BLOOD LOSS: 700 mL. FINDINGS: Consistent with postoperative diagnosis. SPECIMENS: Cord gases, placenta. ANESTHETIC: Spinal. DRAINS: Shaver. COMPLICATIONS: None. DISPOSITION: Recovery. DESCRIPTION OF PROCEDURE: Whit was given a spinal anesthetic, prepped and draped in supine position with a leftward tilt. Shaver catheter placed by nursing. Pickups with teeth used to assess the skin and was found to be adequate for incision. IV Ancef was given preoperatively. Scalpel was used to make a Pfannenstiel incision dissecting down through subcutaneous fat to fascia in the midline. Fascia then dissected laterally with a curved Mayos and then fascia released from the rectus muscles superiorly and inferiorly with the curved Mayos. Rectus muscle split. Peritoneal cavity entered in a superior location and then peritoneal opening enlarged to allow exposure. Bladder retractor placed. Metzenbaum was used to dissect away the bladder flap. Bladder retractor repositioned. Scalpel used to make a low transverse incision. Entry was done bluntly with the pockets and pieces necktie operator's finger. Uterine incision was then enlarged manual with the pockets and pieces necktie operator's fingers and then first baby was in vertex position. Membranes were ruptured and then baby was delivered by pressure on the abdomen and flexion of the head. No excessive force was used. Live vigorous male infant. Cord clamped and cut. Note, curved Rhea's were used on the cord and baby A. Second baby's head floated down. Membranes were ruptured and the exact same process was repeated with abdominal pressure and flexion of the head. No excessive force used. Live vigorous male infant. Straight clamps were used on the cord and the placenta of baby B. At this stage, we then removed the placenta manually, ensured all tissue removed with a moist lap. IV Pitocin started. Uterus exteriorized. Uterus closed in the usual fashion with a running 0 Monocryl locked and then a second reinforcing 0 Monocryl nonlocked. At this stage after generous irrigation and suction of the cul-de-sac and bladder flap regions, uterus was placed back in the peritoneal cavity, hemostasis was excellent. Urine was clear draining into the Shaver catheter at this stage. Fascia closed with 0 Vicryl, subcutaneous fat closed with 3-0 Vicryl, 4-0 subcuticular Monocryl closures with Steri-Strips. Sponge and instrument counts correct. I attest to the content of the Intraoperative Record and any orders documented therein. Any exception s are noted below.
[2018-01-14] MEDS: KETOROLAC TROMETHAMINE 30 MG/ML VIAL IV. PRN (10:33)
--- NOTE | 2018-01-14 11:13 | Anesthesiology Progress Note ---
Anesthesia Post Op Note Date & Time Jan 14, 2018 at 11:13 Vital Signs Pain Intensity: 3.0 Notes Mental Status: alert / awake / arousable, participated in evaluation Pt Amnestic to Procedure: Yes Nausea / Vomiting: adequately controlled Pain: adequately controlled Airway Patency, RR, SpO2: stable & adequate BP & HR: stable & adequate Hydration State: stable & adequate Neuraxial Anesthesia: was administered, sensory block is resolving Anesthetic Complications: no major complications apparent
[2018-01-14] MEDS: MEPERIDINE HCL 25 MG/ML CARP IV PRN ×2 (12:31→13:06)
[2018-01-14] MEDS: OXYTOCIN INJ 20 UNITS in LACTATED RINGER'S 1000ML 1,000 ML IV SCH (15:46)
[2018-01-14] MEDS: DOCUSATE SODIUM 100 MG CAP PO SCH (19:58)
[2018-01-14] MEDS ORDERED: CALCIUM CARBONATE 500 MG CHEWABLE ONE (20:40)
[2018-01-14] MEDS ORDERED: LACTATED RINGER'S 1000ML 500 ML IV SCH (21:00)
[2018-01-14] MEDS ORDERED: NURSING VERBAL MED ORDER ONE (21:00)
[2018-01-15] VITALS (13 sets, daily range): BP systolic 120–138; BP diastolic 71–89; PULSE 67–83; TEMP 36.4–36.9; O2SAT 96–99
[2018-01-15] MEDS: KETOROLAC TROMETHAMINE 30 MG/ML VIAL IV. PRN ×2 (00:11→07:59)
[2018-01-15] MEDS: OXYTOCIN INJ 20 UNITS in LACTATED RINGER'S 1000ML 1,000 ML IV SCH (03:35)
--- NOTE | 2018-01-15 06:56 | Progress Note ---
Subjective Jan 15, 2018. Subjective conversation w/ patient, conversation w/ family, physical exam, chart review, lab review Ambulation: limited ambulation (secondary to dizziness) Voiding: no voiding problems Passing Gas: Yes Diet Tolerance: Regular Diet Lochia: Small Feeding Type: Breast Feeding Pain: localized to incision Problem List status post Review of Systems Constitutional: No fever, No chills Respiratory: No cough, No wheezing, No shortness of breath Cardiac: No chest pain, No palpitations Breast: No breast pain Abdomen: + pain (localized to incision), No nausea, No vomiting Objective Vital Signs Date Time Temp Pulse Resp B/P (MAP) Pulse Ox O2 Delivery O2 Flow Rate FiO2 01/15/18 05:20 18 97 01/15/18 04:20 18 97 01/15/18 04:20 36.7 67 18 122/81 (95) 97 Room Air 01/15/18 03:40 18 98 01/15/18 02:40 16 96 01/15/18 01:37 16 96 01/15/18 00:40 18 98 01/14/18 23:40 36.9 86 18 124/79 (94) 98 Room Air 01/14/18 23:40 98 Room Air 01/14/18 23:40 18 98 01/14/18 22:15 18 100 01/14/18 21:00 18 100 01/14/18 20:00 18 100 01/14/18 20:00 37.1 79 18 132/89 (103) 100 Room Air 01/14/18 18:30 18 100 01/14/18 17:30 18 100 01/14/18 16:35 100 Room Air 01/14/18 16:35 18 100 01/14/18 16:35 37.2 86 18 130/88 (102) 100 Room Air 01/14/18 15:30 18 100 01/14/18 14:30 16 100 01/14/18 13:30 18 100 01/14/18 13:30 80 18 120/76 (91) 100 Room Air 01/14/18 12:30 18 100 01/14/18 12:30 90 18 121/79 (93) 100 Room Air 01/14/18 11:30 100 Room Air 01/14/18 11:30 100 Room Air 01/14/18 11:30 20 100 01/14/18 11:30 36.8 87 20 129/84 (99) 100 Room Air Physical Exam General Appearance: WELL-APPEARING, WD/WN Respiratory/Chest: lungs clear, normal breath sounds, no respiratory distress, no accessory muscle use Cardiovascular: regular rate, rhythm, no gallop, no murmur Fundus: Firm, Non-Tender, Relation to Umbilicus (inferior to umbilicus) Extremities: no pedal edema, no calf tenderness Laboratory Results Last 24 Hours Test 01/15/18 06:00 Medications Current Inpatient Medications Medications (Trade) Dose Ordered Sig/Jaymie Route Start Time Stop Time Status Last Admin Dose Admin Oxytocin 20 units/ Lactated Ringer's 1,002 ml @ 125 mls/hr Q8H1M IV 01/14/18 08:26 02/13/18 08:25 01/15/18 03:35 125 MLS/HR Lactated Ringer's 1,000 ml @ 125 mls/hr Q8H IV 01/14/18 08:26 02/13/18 08:25 Ibuprofen (Motrin Tab) 600 mg Q4H PRN PO 01/14/18 08:30 02/13/18 08:29 Prenat Multivit/ Site Safety Representative/Iron/Folic Ac ( Vitamin Tab) 1 tab DAILY PO 01/15/18 08:00 02/14/18 07:59 Bisacodyl (Dulcolax Tab) 5 mg HS ONCE PO 01/15/18 22:00 01/15/18 22:01 Bisacodyl (Dulcolax Supp) 10 mg PRN PRN [place] 01/16/18 22:45 02/15/18 22:44 Docusate Sodium (coLACE CAP) 100 mg BID PO 01/14/18 20:00 02/13/18 19:59 01/14/18 19:58 100 MG Magnesium Hydroxide (Milk Of Magnesia Susp) 30 ml HS PRN PO 01/14/18 08:30 02/13/18 08:29 Cocaine HCl (Supercream 0.870% Cr) BID PRN EXT 01/14/18 08:30 01/28/18 08:29 Lanolin (Lanolin Oint) PRN PRN EXT 01/14/18 08:30 02/13/18 08:29 Hydrocortisone Acetate (Anusol Hc Supp) 25 mg BID PRN [place] 01/14/18 08:30 02/13/18 08:29 Benzocaine (Dermoplast Aero Spr) 1 appln PRN PRN EXT 01/14/18 08:30 02/13/18 08:29 Simethicone (Mylicon Chew Tab) 80 mg QID PO 01/14/18 09:00 02/13/18 08:59 01/14/18 19:58 80 MG Senna (Senokot Tab) 17.2 mg HS PRN PO 01/14/18 08:30 02/13/18 08:29 Naloxone HCl (Narcan Inj) 0.1 mg UD PRN IV 01/14/18 09:00 01/15/18 08:00 Diphenhydramine HCl (Benadryl Inj) 25 mg Q6H PRN IV 01/14/18 09:00 01/15/18 08:00 01/14/18 09:17 25 MG Nalbuphine HCl (Nubain Inj) 5 mg Q10M PRN IV 01/14/18 09:00 01/15/18 08:00 Naloxone HCl 1 mg/ Sodium Chloride 1,002.5 ml @ 50 mls/hr Q20H3M PRN IV 01/14/18 08:57 01/15/18 08:00 Ondansetron HCl (Zofran Inj) 4 mg Q6H PRN IV 01/14/18 09:00 01/15/18 08:00 Promethazine HCl 6.25 mg/Sodium Chloride 50.25 ml @ 200 mls/hr Q6H PRN IV 01/14/18 09:00 01/15/18 08:00 Ketorolac Tromethamine (Toradol Inj) 30 mg Q6H PRN IV. 01/14/18 09:00 01/15/18 08:00 01/15/18 00:11 30 MG Meperidine HCl (Demerol Inj) 25 mg Q15M PRN IV 01/14/18 09:00 01/15/18 08:00 01/14/18 13:06 25 MG Miscellaneous Information (Dc Intraspinal Morphine) 1 ea ONE N/A 01/14/18 09:00 01/15/18 08:00 Miscellaneous Information (No Narcotics Or Sedatives) 1 ea UD N/A 01/14/18 09:00 01/15/18 08:00 Naloxone HCl 0.08 mg/Syringe 2 ml @ 1 mls/min Q2M PRN IV 01/14/18 08:57 01/15/18 08:00 Morphine Sulfate (MoRPHine SULFATE INJ) 4 mg Q2H PRN IV 01/14/18 09:00 01/15/18 08:00 Lactated Ringer's 500 ml @ 999 mls/hr Q31M PRN IV 01/14/18 08:57 01/15/18 08:00 Ephedrine Sulfate (EpHEDrine SULFATE INJ) 10 mg Q5M PRN IV 01/14/18 09:00 01/15/18 08:00 Morphine Sulfate (Duramorph Pf Inj) 0.2 mg TODAY PRN EPI 01/14/18 09:00 01/15/18 08:00 Sodium Chloride 1,000 ml @ 15 mls/hr Q24H PRN IV 01/14/18 08:57 01/15/18 08:00 Meperidine HCl (Demerol Inj) 50 mg Q4H PRN IV 01/15/18 08:00 01/29/18 07:59 Meperidine HCl (Demerol Inj) 75 mg Q4H PRN IV 01/15/18 08:00 01/29/18 07:59 Oxycodone/ Acetaminophen (Percocet 5-325mg Tab) 1 tab Q4H PRN PO 01/15/18 08:00 01/29/18 07:59 Oxycodone/ Acetaminophen (Percocet 5-325mg Tab) 2 tab Q4H PRN PO 01/15/18 08:00 01/29/18 07:59 Promethazine HCl 25 mg/Sodium Chloride 51 ml @ 204 mls/hr Q4H PRN IV 01/15/18 08:00 02/14/18 07:59 Zolpidem Tartrate (Ambien Tab) 5 mg HSZ PRN PO 01/15/18 08:00 02/14/18 07:59 Diphenhydramine HCl (Benadryl Cap) 25 mg QID PRN PO 01/15/18 08:00 02/14/18 07:59 Diphenhydramine HCl (Benadryl Inj) 25 mg QID PRN IV 01/15/18 08:00 02/14/18 07:59 Ketorolac Tromethamine (Toradol Inj) 30 mg Q6H PRN IV. 01/15/18 08:00 01/20/18 07:59 Ondansetron HCl (Zofran Inj) 4 mg Q4H PRN IV 01/15/18 08:00 02/14/18 07:59 Assessment and Plan Problem List post Post-Op Day#: 1 Continue Routine Care: - Vital signs reviewed and within normal limits - Will make patient comfortable with pain management - Encourage ambulation, breast feeding - Question and concerns addressed Resident Physician Supervision Note: I was present with Dr. Andersen during the history and exam. I discussed the case with the resident and agree with the findings and plan as documented in the note. Any exceptions or clarifications are listed here: [None] Documented By: Andrew Bush
[2018-01-15] MEDS ORDERED: ONDANSETRON INJ 2 MG/ML 2 ML VIAL IV PRN (08:00)
[2018-01-15] MEDS ORDERED: PROMETHAZINE HCL INJ 25 MG in SODIUM CHLORIDE 0.9% 50ML 50 ML IV PRN (08:00)
[2018-01-15] MEDS ORDERED: DiphenhydrAMINE HCL 50 MG/ML VIAL IV PRN (08:00)
[2018-01-15] MEDS ORDERED: MEPERIDINE HCL 50 MG/ML CARP IV PRN ×2 (08:00)
[2018-01-15] MEDS ORDERED: KETOROLAC TROMETHAMINE 30 MG/ML VIAL IV. PRN (08:00)
[2018-01-15] MEDS ORDERED: ZOLPIDEM TARTRATE 5 MG TAB PO PRN (08:00)
[2018-01-15] MEDS: SIMETHICONE 80 MG CHEW PO SCH ×4 (08:08→19:44)
[2018-01-15] MEDS: PRENATAL VITAMIN TAB PO SCH (08:08)
[2018-01-15] MEDS: DOCUSATE SODIUM 100 MG CAP PO SCH ×2 (08:08→19:44)
[2018-01-15 08:18] LABS: HEMATOCRIT 24.5 % (37-47); HEMOGLOBIN 8.5 g/dL (12.0-16.0); MEAN CORPUSCULAR HEMOGLOBIN 29.8 pg (25-34); MEAN CORPUSCULAR HGB CONC 34.7 g/dl (32-36); MEAN PLATELET VOLUME 11.9 fL (7.4-10.4); PLATELET COUNT 122 K/uL (130-400); RED CELL DISTRIBUTION WIDTH CV 15.7 % (11.5-14.5); RED CELL DISTRIBUTION WIDTH SD 49.5 fL (36.4-46.3); WHITE BLOOD COUNT 13.59 K/uL (4.8-10.8)
[2018-01-15 08:41] LABS: BASO % 0.1 %; BASO ABS # 0.01 K/uL (0-0.2); EOS % 0.2 %; EOS ABS # 0.03 K/uL (0-0.5); IG# 0.11 K/uL (0.00-0.02); LYMPH % 9.3 %; LYMPH ABS # 1.27 K/uL (1.2-3.4); MONO ABS # 0.54 K/uL (0.11-0.59); NEUT % 85.6 %; NEUT ABS # 11.63 K/uL (1.4-6.5)
[2018-01-15] MEDS: OXYCODONE/ACETAMINOPHEN 5-325 TAB PO PRN ×3 (12:56→20:58)
[2018-01-15] MEDS: IBUPROFEN 600 MG TAB PO PRN ×2 (12:56→17:02)
[2018-01-15] MEDS ORDERED: BISACODYL 5 MG TABEC PO ONE (22:00)
[2018-01-16] MEDS: OXYCODONE/ACETAMINOPHEN 5-325 TAB PO PRN ×5 (01:17→20:12)
[2018-01-16 06:39] LABS: HEMATOCRIT 23.9 % (37-47)
--- NOTE | 2018-01-16 07:05 | Progress Note ---
Subjective Jan 16, 2018. Subjective conversation w/ patient, conversation w/ family, physical exam, chart review, lab review Ambulation: ambulating normally Voiding: no voiding problems Passing Gas: Yes Diet Tolerance: Regular Diet Lochia: Small Feeding Type: Breast Feeding Pain: localized to surgical incision Review of Systems Constitutional: No fever, No chills Respiratory: No cough, No wheezing, No shortness of breath Cardiac: No chest pain, No palpitations Abdomen: + pain (localized to area of surgical incision; made better with analgesics), No nausea, No vomiting Female : No dysuria No headache Objective Vital Signs Date Time Temp Pulse Resp B/P (MAP) Pulse Ox O2 Delivery O2 Flow Rate FiO2 01/15/18 23:45 36.4 83 18 121/71 (88) Room Air 01/15/18 23:45 Room Air 01/15/18 20:00 36.6 72 18 124/80 (95) 99 Room Air 01/15/18 15:40 99 Room Air 01/15/18 15:40 36.6 79 18 138/89 (105) 99 Room Air 01/15/18 08:49 36.9 76 18 120/74 97 01/15/18 07:58 36.9 76 18 120/74 (89) 97 Room Air 01/15/18 07:35 96 Room Air 01/15/18 07:15 18 96 Physical Exam General Appearance: WELL-APPEARING, WD/WN, NO APPARENT DISTRESS Respiratory/Chest: lungs clear, normal breath sounds, no respiratory distress, no accessory muscle use Cardiovascular: regular rate, rhythm, no gallop, no murmur Fundus: Firm, Non-Tender, Relation to Umbilicus (inferior to umbilicus) Extremities: no calf tenderness Laboratory Results Last 24 Hours Test 01/15/18 07:34 01/16/18 05:45 White Blood Count 13.59 K/uL Red Blood Count 2.85 M/uL Hemoglobin 8.5 g/dL 8.0 g/dL Hematocrit 24.5 % 23.9 % Mean Corpuscular Volume 86.0 fL Mean Corpuscular Hemoglobin 29.8 pg Mean Corpuscular Hemoglobin Concent 34.7 g/dl Platelet Count 122 K/uL Mean Platelet Volume 11.9 fL Neutrophils (%) (Auto) 85.6 % Lymphocytes (%) (Auto) 9.3 % Monocytes (%) (Auto) 4.0 % Eosinophils (%) (Auto) 0.2 % Basophils (%) (Auto) 0.1 % Neutrophils # (Auto) 11.63 K/uL Lymphocytes # (Auto) 1.27 K/uL Monocytes # (Auto) 0.54 K/uL Eosinophils # (Auto) 0.03 K/uL Basophils # (Auto) 0.01 K/uL RDW Standard Deviation 49.5 fL RDW Coefficient of Variation 15.7 % Immature Granulocyte % (Auto) 0.8 % Immature Granulocyte # (Auto) 0.11 K/uL Hypersegmented Polys 1+ Large Platelets 1+ Medications Current Inpatient Medications Medications (Trade) Dose Ordered Sig/Jaymie Route Start Time Stop Time Status Last Admin Dose Admin Oxytocin 20 units/ Lactated Ringer's 1,002 ml @ 125 mls/hr Q8H1M IV 01/14/18 08:26 02/13/18 08:25 01/15/18 03:35 125 MLS/HR Lactated Ringer's 1,000 ml @ 125 mls/hr Q8H IV 01/14/18 08:26 02/13/18 08:25 Ibuprofen (Motrin Tab) 600 mg Q4H PRN PO 01/14/18 08:30 02/13/18 08:29 01/15/18 17:02 600 MG Prenat Multivit/ [place]/Iron/Folic Ac ( Vitamin Tab) 1 tab DAILY PO 01/15/18 08:00 02/14/18 07:59 01/15/18 08:08 1 TAB Bisacodyl (Dulcolax Supp) 10 mg PRN PRN [place] 01/16/18 22:45 02/15/18 22:44 Docusate Sodium (coLACE CAP) 100 mg BID PO 01/14/18 20:00 02/13/18 19:59 01/15/18 19:44 100 MG Magnesium Hydroxide (Milk Of Magnesia Susp) 30 ml HS PRN PO 01/14/18 08:30 02/13/18 08:29 Cocaine HCl (Supercream 0.870% Cr) BID PRN EXT 01/14/18 08:30 01/28/18 08:29 Lanolin (Lanolin Oint) PRN PRN EXT 01/14/18 08:30 02/13/18 08:29 Hydrocortisone Acetate (Anusol Hc Supp) 25 mg BID PRN [place] 01/14/18 08:30 02/13/18 08:29 Benzocaine (Dermoplast Aero Spr) 1 appln PRN PRN EXT 01/14/18 08:30 02/13/18 08:29 Simethicone (Mylicon Chew Tab) 80 mg QID PO 01/14/18 09:00 02/13/18 08:59 01/15/18 19:44 80 MG Senna (Senokot Tab) 17.2 mg HS PRN PO 01/14/18 08:30 02/13/18 08:29 Meperidine HCl (Demerol Inj) 50 mg Q4H PRN IV 01/15/18 08:00 01/29/18 07:59 Meperidine HCl (Demerol Inj) 75 mg Q4H PRN IV 01/15/18 08:00 01/29/18 07:59 Oxycodone/ Acetaminophen (Percocet 5-325mg Tab) 1 tab Q4H PRN PO 01/15/18 08:00 01/29/18 07:59 01/15/18 16:59 1 TAB Oxycodone/ Acetaminophen (Percocet 5-325mg Tab) 2 tab Q4H PRN PO 01/15/18 08:00 01/29/18 07:59 01/16/18 05:57 2 TAB Promethazine HCl 25 mg/Sodium Chloride 51 ml @ 204 mls/hr Q4H PRN IV 01/15/18 08:00 02/14/18 07:59 Zolpidem Tartrate (Ambien Tab) 5 mg HSZ PRN PO 01/15/18 08:00 02/14/18 07:59 Diphenhydramine HCl (Benadryl Cap) 25 mg QID PRN PO 01/15/18 08:00 02/14/18 07:59 Diphenhydramine HCl (Benadryl Inj) 25 mg QID PRN IV 01/15/18 08:00 02/14/18 07:59 Ketorolac Tromethamine (Toradol Inj) 30 mg Q6H PRN IV. 01/15/18 08:00 01/20/18 07:59 Ondansetron HCl (Zofran Inj) 4 mg Q4H PRN IV 01/15/18 08:00 02/14/18 07:59 Assessment and Plan Problem List status post of gestational twins Post-Op Day#: 2 Continue Routine Care: - Vital signs reviewed and within normal limits - Encourage ambulation, breast feeding, will control pain with PRN analgesics - All questions and concerns addressed Resident Physician Supervision Note: I interviewed and examined the patient. Discussed with Dr. Andersen and agree with findings and plan as documented in the note. Any exceptions or clarifications are listed here: [None] Documented By: Socorro Malone
[2018-01-16 07:30] VITALS: BP 130/89; PULSE 83; TEMP 36.4; O2SAT 99
[2018-01-16] MEDS: PRENATAL VITAMIN TAB PO SCH (08:18)
[2018-01-16] MEDS: DOCUSATE SODIUM 100 MG CAP PO SCH ×2 (08:18→20:01)
[2018-01-16] MEDS: SIMETHICONE 80 MG CHEW PO SCH ×4 (08:19→20:01)
[2018-01-16] MEDS: IBUPROFEN 600 MG TAB PO PRN ×4 (08:19→22:20)
[2018-01-16] MEDS ORDERED: MTR600X PO (14:56)
[2018-01-16] MEDS ORDERED: OXYC-57 PO (14:56)
[2018-01-16 15:40] VITALS: BP 143/85; PULSE 94; TEMP 36.9; O2SAT 99
[2018-01-16 20:00] VITALS: BP 126/76; PULSE 86; TEMP 37.1
[2018-01-16] MEDS: HYDROCORTISONE 2.5% CR 30 GM TUBE EXT PRN (20:01)
[2018-01-16] MEDS ORDERED: BISACODYL 10 MG SUPP PR PRN (22:45)
[2018-01-17] MEDS: OXYCODONE/ACETAMINOPHEN 5-325 TAB PO PRN ×5 (00:04→19:51)
[2018-01-17 00:05] VITALS: BP 125/83; PULSE 95; TEMP 36.8
[2018-01-17] MEDS: IBUPROFEN 600 MG TAB PO PRN ×4 (02:38→22:12)
--- NOTE | 2018-01-17 06:52 | Progress Note ---
Subjective Jan 17, 2018. Subjective conversation w/ patient, conversation w/ family, physical exam, chart review, lab review Ambulation: ambulating normally Voiding: no voiding problems Passing Gas: Yes Diet Tolerance: Regular Diet Lochia: Small Feeding Type: Breast Feeding Review of Systems Constitutional: No fever, No chills Respiratory: No cough, No wheezing, No shortness of breath Cardiac: No chest pain, No palpitations Breast: No breast pain Abdomen: No nausea, No vomiting Female : No dysuria No headache Objective Vital Signs Date Time Temp Pulse Resp B/P (MAP) Pulse Ox O2 Delivery O2 Flow Rate FiO2 01/17/18 00:05 36.8 95 18 125/83 (97) Room Air 01/17/18 00:05 Room Air 01/16/18 20:00 Room Air 01/16/18 20:00 37.1 86 16 126/76 (93) Room Air 01/16/18 15:40 99 Room Air 01/16/18 15:40 36.9 94 18 143/85 (104) 99 Room Air 01/16/18 07:30 99 Room Air 01/16/18 07:30 36.4 83 20 130/89 (103) 99 Room Air Physical Exam General Appearance: WELL-APPEARING, WD/WN Respiratory/Chest: lungs clear, normal breath sounds, no respiratory distress, no accessory muscle use Cardiovascular: regular rate, rhythm, no gallop, no murmur Fundus: Firm, Non-Tender, Relation to Umbilicus (inferior to umbilicus) Extremities: no calf tenderness Medications Current Inpatient Medications Medications (Trade) Dose Ordered Sig/Jaymie Route Start Time Stop Time Status Last Admin Dose Admin Oxytocin 20 units/ Lactated Ringer's 1,002 ml @ 125 mls/hr Q8H1M IV 01/14/18 08:26 02/13/18 08:25 01/15/18 03:35 125 MLS/HR Lactated Ringer's 1,000 ml @ 125 mls/hr Q8H IV 01/14/18 08:26 02/13/18 08:25 Ibuprofen (Motrin Tab) 600 mg Q4H PRN PO 01/14/18 08:30 02/13/18 08:29 01/17/18 02:38 600 MG Prenat Multivit/ [place]/Iron/Folic Ac ( Vitamin Tab) 1 tab DAILY PO 01/15/18 08:00 02/14/18 07:59 01/16/18 08:18 1 TAB Bisacodyl (Dulcolax Supp) 10 mg PRN PRN [place] 01/16/18 22:45 02/15/18 22:44 Docusate Sodium (coLACE CAP) 100 mg BID PO 01/14/18 20:00 02/13/18 19:59 01/16/18 20:01 100 MG Magnesium Hydroxide (Milk Of Magnesia Susp) 30 ml HS PRN PO 01/14/18 08:30 02/13/18 08:29 Cocaine HCl (Supercream 0.870% Cr) BID PRN EXT 01/14/18 08:30 01/28/18 08:29 Lanolin (Lanolin Oint) PRN PRN EXT 01/14/18 08:30 02/13/18 08:29 Hydrocortisone Acetate (Anusol Hc Supp) 25 mg BID PRN [place] 01/14/18 08:30 02/13/18 08:29 Benzocaine (Dermoplast Aero Spr) 1 appln PRN PRN EXT 01/14/18 08:30 02/13/18 08:29 Simethicone (Mylicon Chew Tab) 80 mg QID PO 01/14/18 09:00 02/13/18 08:59 01/16/18 20:01 80 MG Senna (Senokot Tab) 17.2 mg HS PRN PO 01/14/18 08:30 02/13/18 08:29 Meperidine HCl (Demerol Inj) 50 mg Q4H PRN IV 01/15/18 08:00 01/29/18 07:59 Meperidine HCl (Demerol Inj) 75 mg Q4H PRN IV 01/15/18 08:00 01/29/18 07:59 Oxycodone/ Acetaminophen (Percocet 5-325mg Tab) 1 tab Q4H PRN PO 01/15/18 08:00 01/29/18 07:59 01/16/18 20:12 1 TAB Oxycodone/ Acetaminophen (Percocet 5-325mg Tab) 2 tab Q4H PRN PO 01/15/18 08:00 01/29/18 07:59 01/17/18 00:04 2 TAB Promethazine HCl 25 mg/Sodium Chloride 51 ml @ 204 mls/hr Q4H PRN IV 01/15/18 08:00 02/14/18 07:59 Zolpidem Tartrate (Ambien Tab) 5 mg HSZ PRN PO 01/15/18 08:00 02/14/18 07:59 Diphenhydramine HCl (Benadryl Cap) 25 mg QID PRN PO 01/15/18 08:00 02/14/18 07:59 Diphenhydramine HCl (Benadryl Inj) 25 mg QID PRN IV 01/15/18 08:00 02/14/18 07:59 Ketorolac Tromethamine (Toradol Inj) 30 mg Q6H PRN IV. 01/15/18 08:00 01/20/18 07:59 Ondansetron HCl (Zofran Inj) 4 mg Q4H PRN IV 01/15/18 08:00 02/14/18 07:59 Hydrocortisone (Hydrocortisone 2.5% Crm) 1 appln Q6H PRN EXT 01/16/18 19:30 02/15/18 19:29 01/16/18 20:01 1 APPLN Assessment and Plan Problem List Status post for gestational twins Post-Op Day#: 3 Continue Routine Care: - Vital signs reviewed and within normal limits - Monitor and manage pain with PRN analgesics - All questions and concerns addressed Resident Physician Supervision Note: I interviewed and examined the patient. Discussed with Dr. Andersen and agree with findings and plan as documented in the note. Any exceptions or clarifications are listed here: Baby B not feeding well, pt to remain for the the full 4 days Documented By: Edward Montoya
--- NOTE | 2018-01-17 07:29 | Discharge Instructions ---
Discharge Instructions Date of Service Jan 17, 2018. Admission Reason for Admission: Delivery by Elective Section Discharge Discharge Diagnosis / Problem: Status post delivery of gestational twins Discharge Goals Goal(s): Routine recovery after surgery Medications Continue Dispensed Medications: supercream, dermaplast, tucks, lansinoh Activity Recommendations Activity Limitations: per Instructions/Follow-up section . Instructions / Follow-Up Instructions / Follow-Up ACTIVITY RECOMMENDATIONS: * Gradual return to full activity over the next 2-3 weeks. * No lifting - nothing heavier than baby over the next 2-3 weeks. * Do not engage in vigorous exercise, sexual activity or sports until cleared by your physician. * Do not drive or operate any motorized equipment until cleared by your physician. * You may shower/bathe daily. MEDICATIONS: For discomfort or pain, you may use Acetaminophen (Tylenol), Ibuprofen (Advil), or Naproxen (Aleve) following the package directions. For constipation you may use Colace following the package directions. BREAST CARE: If you are not breast feeding: * Wear a supportive bra 24 hours a day for one to two weeks. * Avoid stimulating your breasts and nipples as much as possible during the first few weeks after delivery. * When taking a shower, have the warm water hit your back, not breasts. * When your breasts feel full, apply ice packs. Usually three to four times a day helps ease the discomfort. * Take a mild pain medication (Tylenol / Motrin) when you are uncomfortable. If breast feeding: * Use breast milk to lubricate nipples. Lansinoh cream may be used for sore nipples. You do not need to remove cream prior to breast feeding. If using a different brand of cream, check the label for directions regarding removal of cream prior to nursing. * Wear a supportive bra. * If having problems with breasts or breast feeding, call a learning consultant or your health care provider. SPECIAL CARE INSTRUCTIONS: When you are discharged from the hospital, it is important for you to follow the instructions listed below: * During the first week at home, you should be able to care for yourself and your baby. In addition, the usual light household activities are encouraged. * Limit your activities to the way you feel. Do not try to clean the house or move furniture. Be sensible. * If you actively engage in sports and have done so up until the time of your delivery, you may resume these activities as soon as you feel able. This may take up to one month or even longer. Use good judgment. * Continue to take your vitamins for at least six weeks after the of your baby. * Your diet need not be limited unless you were on a special diet before your delivery. Breast-feeding mothers need around 2500 calories per day and at least 64-80 ounces of fluid per day (8 to 10 glasses). * You should eat foods from the four major food groups. Crash diets or fad diets are to be avoided. Eating lean meats, fresh fruits and vegetables, low-fat dairy products, high fiber foods and a regular exercise program, will help you get back to your pre- weight without putting your health at risk. * Constipation is sometimes a problem after delivery. Take a mild laxative as needed. If breast feeding, Milk of Magnesia is acceptable to use. You may use a suppository or Fleets enema. * A daily shower or tub bath is suggested. Wash incision daily with warm soapy water and pat dry. It doesn't need to be covered unless drainage is present. * A bloody vaginal discharge will usually continue until around four weeks . A small amount of bleeding may continue for as long as six weeks. Vaginal discharge changes from the bright red bleeding after delivery to pink then brownish and finally yellowish-pink before becoming white and disappearing. * Bleeding may increase with activity. Your first period may come in 4-8 weeks. If you are breast feeding, your period may be delayed even longer. * [place] (sex) can begin whenever both you and your partner feel comfortable and do not have any form of genital infection. It is recommended that you wait at least six weeks for internal and external healing to occur. If you have questions, please talk to your health care practitioner. A condom should be used to prevent infection and . * Foreplay, gentle intercourse and lubrication is very important the first several times to prevent pain. A water-based lubricant such as K-Y jelly or Astroglide may be used. * If you have RH negative blood and your baby is RH positive, you will receive RHOGAM by injection prior to discharge. The nurse will give you a card to keep with you that has the date and place that you received RHOGAM after delivery. * During your care, you had a Rubella screen done to check for the presence of rubella antibodies in your blood. If your test was negative, you will receive a Rubella vaccine prior to discharge. This vaccine may cause a fever, soreness at the injection site and flu-like symptoms. If these symptoms persist, notify your health care practitioner. is not advised for one month after a Rubella vaccine. * Verbalizes understanding of car seat law as reviewed with patient nursing. * Car Seat hand-out given and reviewed with patient by nursing. * Shaken baby information reviewed with patient by nursing. Call you doctor if: * Heavy bleeding (saturating several pads an hour) or passing clots the size of your fist. * A fever >101 degrees F (38.3 degrees C) on two occasions four hours apart and /or chills. * Unusual pain in the pelvic or vaginal areas. * Call the doctor for any increased redness, drainage or swelling around the incision and any pain unrelieved by prescribed pain medication. * "Baby Blues" lasting longer than two weeks. If you have any questions or concerns, call your health care practitioner at . FOLLOW UP VISIT: * Please call the office at to schedule a 6 week examination. It is important you keep this appointment. It is important for you to make arrangements for either yearly or twice yearly check-ups thereafter. Current Hospital Diet Patient's current hospital diet: Regular OB Diet Discharge Diet Recommended Diet: Regular Diet Procedures Procedures Performed: Low segment transverse C/S Pending Studies Studies pending at discharge: no Medical Emergencies . Who to Call and When: Medical Emergencies: If at any time you feel your situation is an emergency, please call [phone] immediately. . Non-Emergent Contact Non-Emergency issues call your: Primary Care Provider . . "Provider Documentation" section prepared by Jose Manuel Andersen. .
[2018-01-17] MEDS: SIMETHICONE 80 MG CHEW PO SCH ×4 (07:37→19:50)
[2018-01-17] MEDS: DOCUSATE SODIUM 100 MG CAP PO SCH ×2 (07:37→19:50)
[2018-01-17] MEDS: PRENATAL VITAMIN TAB PO SCH (07:37)
[2018-01-17] MEDS: HYDROCORTISONE 2.5% CR 30 GM TUBE EXT PRN ×2 (07:52→15:27)
[2018-01-17 07:58] VITALS: BP 124/80; PULSE 77; TEMP 36.6; O2SAT 99
[2018-01-17 11:40] VITALS: BP 106/66; PULSE 92; TEMP 37; O2SAT 95
[2018-01-17 16:06] VITALS: BP 118/79; PULSE 90; TEMP 37.3; O2SAT 99
[2018-01-17 19:50] VITALS: BP 132/85; PULSE 101; TEMP 36.6; O2SAT 98
[2018-01-18 00:11] VITALS: BP 133/79; PULSE 82; TEMP 36.7; O2SAT 99
[2018-01-18] MEDS: OXYCODONE/ACETAMINOPHEN 5-325 TAB PO PRN ×4 (00:11→15:41)
--- NOTE | 2018-01-18 07:23 | Progress Note ---
Subjective Jan 18, 2018. Subjective conversation w/ patient, conversation w/ family, physical exam Ambulation: ambulating normally Voiding: no voiding problems Passing Gas: Yes Diet Tolerance: Regular Diet Lochia: Small Feeding Type: Breast Feeding Review of Systems Constitutional: No fever Respiratory: No shortness of breath Cardiac: No chest pain Abdomen: No nausea, No vomiting complaints of rash on abdomen that started yesterday Objective Vital Signs Date Time Temp Pulse Resp B/P (MAP) Pulse Ox O2 Delivery O2 Flow Rate FiO2 01/18/18 00:11 99 Room Air 01/18/18 00:11 36.7 82 18 133/79 (97) 99 Room Air 01/17/18 19:50 98 Room Air 01/17/18 19:50 36.6 101 18 132/85 (101) 98 Room Air 01/17/18 16:06 37.3 90 16 118/79 (92) 99 Room Air 01/17/18 15:15 Room Air 01/17/18 11:40 37.0 92 18 106/66 (79) 95 Room Air 01/17/18 07:58 36.6 77 20 124/80 (95) 99 Room Air 01/17/18 07:40 Room Air Physical Exam General Appearance: WELL-APPEARING, WD/WN Respiratory/Chest: no respiratory distress, no accessory muscle use Abdomen: + pertinent finding (wheels on abodmen consistent with allergic reaction) Incision Description: Clean, Dry & Intact Medications Current Inpatient Medications Medications (Trade) Dose Ordered Sig/Jaymie Route Start Time Stop Time Status Last Admin Dose Admin Oxytocin 20 units/ Lactated Ringer's 1,002 ml @ 125 mls/hr Q8H1M IV 01/14/18 08:26 02/13/18 08:25 01/15/18 03:35 125 MLS/HR Lactated Ringer's 1,000 ml @ 125 mls/hr Q8H IV 01/14/18 08:26 02/13/18 08:25 Ibuprofen (Motrin Tab) 600 mg Q4H PRN PO 01/14/18 08:30 02/13/18 08:29 01/17/18 22:12 600 MG Prenat Multivit/ Microwave Supervisor/Iron/Folic Ac ( Vitamin Tab) 1 tab DAILY PO 01/15/18 08:00 02/14/18 07:59 01/17/18 07:37 1 TAB Bisacodyl (Dulcolax Supp) 10 mg PRN PRN GA 01/16/18 22:45 02/15/18 22:44 Docusate Sodium (coLACE CAP) 100 mg BID PO 01/14/18 20:00 02/13/18 19:59 01/17/18 19:50 100 MG Magnesium Hydroxide (Milk Of Magnesia Susp) 30 ml HS PRN PO 01/14/18 08:30 02/13/18 08:29 Cocaine HCl (Supercream 0.870% Cr) BID PRN EXT 01/14/18 08:30 01/28/18 08:29 Lanolin (Lanolin Oint) PRN PRN EXT 01/14/18 08:30 02/13/18 08:29 Hydrocortisone Acetate (Anusol Hc Supp) 25 mg BID PRN GA 01/14/18 08:30 02/13/18 08:29 Benzocaine (Dermoplast Aero Spr) 1 appln PRN PRN EXT 01/14/18 08:30 02/13/18 08:29 Simethicone (Mylicon Chew Tab) 80 mg QID PO 01/14/18 09:00 02/13/18 08:59 01/17/18 19:50 80 MG Senna (Senokot Tab) 17.2 mg HS PRN PO 01/14/18 08:30 02/13/18 08:29 Meperidine HCl (Demerol Inj) 50 mg Q4H PRN IV 01/15/18 08:00 01/29/18 07:59 Meperidine HCl (Demerol Inj) 75 mg Q4H PRN IV 01/15/18 08:00 01/29/18 07:59 Oxycodone/ Acetaminophen (Percocet 5-325mg Tab) 1 tab Q4H PRN PO 01/15/18 08:00 01/29/18 07:59 01/18/18 00:11 1 TAB Oxycodone/ Acetaminophen (Percocet 5-325mg Tab) 2 tab Q4H PRN PO 01/15/18 08:00 01/29/18 07:59 01/18/18 06:01 2 TAB Promethazine HCl 25 mg/Sodium Chloride 51 ml @ 204 mls/hr Q4H PRN IV 01/15/18 08:00 02/14/18 07:59 Zolpidem Tartrate (Ambien Tab) 5 mg HSZ PRN PO 01/15/18 08:00 02/14/18 07:59 Diphenhydramine HCl (Benadryl Cap) 25 mg QID PRN PO 01/15/18 08:00 02/14/18 07:59 Diphenhydramine HCl (Benadryl Inj) 25 mg QID PRN IV 01/15/18 08:00 02/14/18 07:59 Ketorolac Tromethamine (Toradol Inj) 30 mg Q6H PRN IV. 01/15/18 08:00 01/20/18 07:59 Ondansetron HCl (Zofran Inj) 4 mg Q4H PRN IV 01/15/18 08:00 02/14/18 07:59 Hydrocortisone (Hydrocortisone 2.5% Crm) 1 appln Q6H PRN EXT 01/16/18 19:30 02/15/18 19:29 01/17/18 15:27 1 APPLN Assessment and Plan Problem List status post delivery of gestational twins Post-Op Day#: 4 Continue Routine Care: - Vital signs reviewed and within normal limits - Discussed discharge instructions with patient and spouse - Encourage ambulation, breast feeding - All questions and concerns addressed Resident Physician Supervision Note: I was present with Dr. Andersen during the history and exam. I discussed the case with the resident and agree with the findings and plan as documented in the note. Any exceptions or clarifications are listed here: POD#4 doing well. Discharge to home today. There is some rash on patient's abdomen - does not appear to be infection; I think this is likely skin irritation from the drape - it follows the same shape/pattern of surgical drape. Incision is C/D/I. Discharge instructions reviewed. Documented By: Hillary Barbosa
[2018-01-18] MEDS: PRENATAL VITAMIN TAB PO SCH (08:07)
[2018-01-18] MEDS: SIMETHICONE 80 MG CHEW PO SCH ×2 (08:07→13:35)
[2018-01-18] MEDS: IBUPROFEN 600 MG TAB PO PRN ×2 (08:07→13:36)
[2018-01-18] MEDS: DOCUSATE SODIUM 100 MG CAP PO SCH (08:07)
[2018-01-18 08:45] VITALS: BP 144/84; PULSE 77; TEMP 36.7; O2SAT 100
[2018-01-18] MEDS: HYDROCORTISONE 2.5% CR 30 GM TUBE EXT PRN (13:36)
--- NOTE | 2018-01-20 10:58 | DISCHARGE SUMMARY ---
HOSPITAL COURSE: Whit had a section for twin presentation and intrahepatic cholestasis of . Operative note uncomplicated and in the chart. The patient met discharge criteria on January 18, postop day #4. At that time, she was assessed by the team and was ambulating well, tolerating an oral diet and had no extremity pain. PHYSICAL EXAMINATION: VITAL SIGNS: Stable. She is afebrile. Incision clean, dry and intact and she had no extremity pain. IMPRESSION AND PLAN: Postop day 4, discharged home with pain medication, ambulation encouraged and follow up with the office.
== END 2018-01-18 16:45 | disposition home or self-care (01) | DRG 765 ==
LOC: C.LD 05:14 → C.OBG 11:53 → EDSTATUS 01-21 13:58
PROVIDERS: ADMIT Obstetrics & Gynecology; ATTEND Obstetrics & Gynecology
PROC: 10D00Z1 Extraction of Products of Conception, Low, Open Approach (ICD-10-PCS; principal; 2018-01-14 07:30)
DX: O30.043 Twin pregnancy, dichorionic/diamniotic, third trimester (principal); O26.62 Liver and biliary tract disorders in childbirth; Z37.2 Twins, both liveborn; O09.813 Supervision of pregnancy resulting from assisted reproductive technology, third trimester; Z3A.36 36 weeks gestation of pregnancy

== ENCOUNTER 2020-12-19 04:50 | Inpatient (IN) ==
--- NOTE | 2020-12-19 05:22 | History & Physical Report ---
Date of Service December 19, 2020 Assessment & Plan (1) 38 weeks gestation of : (2) PROM (premature rupture of membranes): (3) Previous delivery affecting , antepartum: (4) resulting from in vitro fertilization, antepartum: (5) Insulin controlled gestational diabetes mellitus (GDM) during : (6) Need for rhogam due to Rh negative mother: admit, iv, labs. consult anesthesia. will ready pt for c/s. check bedside bsg. rhogam eval pp. consent reviewed and signed. History of Present Illness Chief Complaint: water leaking since 0200 today. Primary Care Provider: Trish Fletcher MD 35yo at 38+wks egshira presents to L&D with cc of leaking fluid since 0200am today, some white flecks in it. Notes was feeling some trickling yesterday but [place] and so thought she was just sweating. This am felt a gush at 2am and has continued. Sees white flecks in the fluid. Denies pain. She says discharge was pinkish but no maxime bleeding. +FM. PNC c/b 1. Prior c/s for twins, desires repeat c/s 2. IVF/ICSI 3. GDM, diet controlled--although chart indicates was asked to start bedtime insulin but refused. 4. 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 Rh negative PNL Rh neg, RI, GBS neg OBH: 36wk twin c/s Allergies Allergy/AdvReac Type Severity Reaction Status Date / Time No Known Drug Allergies Allergy Mild None Verified 12/19/20 05:49 shrimp AdvReac Unknown Hives Verified 12/19/20 05:49 Home Medications Medication Instructions Recorded Confirmed Type mometasone 50 mcg/actuation nasal 2 sprays INTNAS DAILY #3 btl 10/24/19 12/19/20 Rx spray prenat.vits,greg,[id number] 1 tab PO DAILY 06/01/20 12/19/20 History acetone (urine) test #50 ea 07/23/20 12/16/20 Rx blood sugar diagnostic #150 ea 07/23/20 12/16/20 Rx blood-glucose meter #1 ea 07/23/20 12/16/20 Rx lancets 33 gauge #150 ea 07/23/20 12/16/20 Rx melatonin 5 mg PO HS 12/09/20 12/19/20 History insulin syringe-needle U-100 0.3 #100 ea 12/10/20 12/16/20 Rx mL 31 gauge x 5/16" sertraline 50 mg tablet 50 mg PO DAILY #30 tab 12/10/20 12/19/20 Rx Patient History Medical History Enlarged thyroid Surgical History H/O laparoscopy History of salpingectomy Hx of section S/P appendectomy S/P wisdom tooth extraction Family History Grandfather Prostate cancer Denies family history of Ovarian cancer Myocardial infarction Breast cancer Colorectal cancer Social History (Updated 06/01/20 @ 11:06 by Larissa Nevarez) Smoking Status: Never smoker Second Hand Exposure: No; Hx Alcohol Use: No Hx Substance Use: No Preferred Language: German Communication Ability: Effective Visual Impairment: No Limitations Hearing Ability: Normal Antique Repairer Required: No Beliefs That Will Affect Care: None marital status: marital status details: Levon [phone] Current Living Situation: Spouse Current Living Situation Comment: Lives with and twin boys current occupational status: unemployed current occupation: homemaker Feels Safe at Home: Yes Childhood Exposure to Second-Hand Smoke: No Dental Care, Regularly: Yes Physical Activity Frequency: Does not Exercise Seatbelt Use: always Assistive Devices: None Physical Exam Constitutional: WD/WN, vitals as above Respiratory: normal respiratory effort, lungs clear to auscultation Cardiovascular: Rate/Rhythm: regular rate and regular rhythm Gastrointestinal (Abdomen): soft gravid nt Musculoskeletal: no edema nontender calves Neurologic: grossly normal Psychiatric: A+Ox3, euthymic affect Genitourinary: OB Exam Abdomen: + vertex (by Liam) Manual OB Exam: + cervical dilation (closed, int os. ) fingertip (ext os), + cervical effacement (long) and + station high OB Exam Monitor Tracing: + external FHT monitor used (135 mod variability), + external uterine monitor used (q7), + category I and + normal FHT variability SSE small pool, +nitrazine +ferning. vernix noted in urine specimen Results & Data ([facility]) Vital Signs (Past 12 Hours) Vital Signs Pulse BP 12/19/20 05:07 77 137/83 Coding Level of Care Code None Diagnoses 38 weeks gestation of Z3A.38 PROM (premature rupture of membranes) O42.90 Previous delivery affecting , antepartum O34.219 resulting from in vitro fertilization, antepartum O09.819 Insulin controlled gestational diabetes mellitus (GDM) during O24.414 Need for rhogam due to Rh negative mother Z29.13
[2020-12-19] MEDS ORDERED: LACTATED RINGER'S 1,000 ML IV SCH ×3 (05:30→10:45)
[2020-12-19 05:42] LABS: Hemoglobin 12.8 g/dL (12.0-16.0); Mean Corpuscular Hemoglobin 28.6 pg (25-34); Mean Corpuscular Hgb Conc 33.7 g/dL (32-36); Mean Corpuscular Volume 84.8 fL (80-100); Mean Platelet Volume 12.7 fL (7.4-10.4); Platelet Count 186 K/uL (130-400); RDW Coefficient of Variation 14.4 % (11.5-14.5); RDW Standard Deviation 44.4 fL (36.4-46.3); Red Blood Count 4.48 M/uL (4.2-5.4); White Blood Count 11.39 K/uL (4.8-10.8)
[2020-12-19] MEDS ORDERED: CITRIC ACID/SODIUM CITRATE 15 ML UDC PO SCH (06:00)
[2020-12-19] MEDS ORDERED: ceFAZolin 2000MG 2,000 MG/15 ML SYR IV SCH (06:00)
--- NOTE | 2020-12-19 06:25 | Anesthesiology Consultation ---
Date of Service December 19, 2020 Assessment & Plan (1) Encounter for pre-operative examination: Chart Review Chart Review: Acceptable Risk for Surgery and Patient NOT seen in Pre Admission Testing Consults Requested none ASA ASA2 Proposed Anesthesia Anesthesia Type: Spinal (+intrathecal narcotics) Risk / Benefits Reviewed With: PT / POA / Parent / Guardian, Accepts Plan and Informed Consent Obtained History Surgery Operation Date: 12/19/20 05:20 Proposed Procedures p Section in LD - Uzma Pettit MD, FACOG Height/Weight Height: 5 ft 2 in Weight: 101.151 kg Allergies Allergy/AdvReac Type Severity Reaction Status Date / Time No Known Drug Allergies Allergy Mild None Verified 12/19/20 05:49 shrimp AdvReac Unknown Hives Verified 12/19/20 05:49 Medications Home Medications Medication Instructions Recorded Confirmed Last Taken mometasone 50 mcg/actuation nasal 2 sprays INTNAS DAILY #3 btl 10/24/19 12/19/20 12/19/20 spray prenat.vits,greg,[id number] 1 tab PO DAILY 06/01/20 12/19/20 12/11/20 acetone (urine) test #50 ea 07/23/20 12/16/20 Unknown blood sugar diagnostic #150 ea 07/23/20 12/16/20 Unknown blood-glucose meter #1 ea 07/23/20 12/16/20 Unknown lancets 33 gauge #150 ea 07/23/20 12/16/20 Unknown melatonin 5 mg PO HS 12/09/20 12/19/20 12/19/20 insulin syringe-needle U-100 0.3 #100 ea 12/10/20 12/16/20 Unknown mL 31 gauge x 5/16" sertraline 50 mg tablet 50 mg PO DAILY #30 tab 12/10/20 12/19/20 12/19/20 Active Medications Generic Name Dose Route Start Last Admin Trade Name Freq PRN Reason Stop Dose Admin Lactated Ringer's 1,000 mls @ 999 mls/hr 12/19/20 05:30 12/19/20 05:52 Lr IV 12/19/20 06:30 999 mls/hr .Q1H1M ANA MARIA Administration NPO Date Last Intake of Fluids: 12/19/20 Time Last Intake of Fluids: 02:00 Date Last Intake of Solids: 12/18/20 Time Last Intake of Solids: 21:00 Past Medical History Medical History Enlarged thyroid Exercise / Class Metabolic Activity II 4-5 Yardwork/Stairs/Walk up hill Past Family History Family History Grandfather Prostate cancer Denies family history of Ovarian cancer Myocardial infarction Breast cancer Colorectal cancer Past Surgical History Surgical History H/O laparoscopy History of salpingectomy Hx of section S/P appendectomy S/P wisdom tooth extraction Past Anesthesia History No Hx of Anesthesia Complications and No Family Hx of Anesthesia Complications History of PONV No Hx of PONV and No Hx of Motion Sickness Social History Smoking Status: Never smoker Hx Alcohol Use: No Hx Substance Use: No substance use type: does not use Physical Exam Vital Signs Last Vital Signs Temp 36.8 C 12/19/20 05:52 Pulse 77 12/19/20 05:07 Resp 18 12/19/20 05:52 BP 137/83 12/19/20 05:07 ENMT Mouth: no dentition abnormality Thyromental Distance: > or= 3.5 Finger Breadths Mallampati Class: II Neck normal visual inspection Respiratory normal respiratory effort Auscultation: lungs clear to auscultation bilaterally Cardiovascular Rate/Rhythm: regular rate and regular rhythm Psychiatric Orientation: alert Lab Results Anesthesia Preop Results Results Anesthesia Widget: 2 WBC 11.39 K/uL (4.8-10.8) H 12/19/20 Hgb 12.8 g/dL (12.0-16.0) 12/19/20 Hct 38.0 % (37-47) 12/19/20 Plt 186 K/uL (130-400) 12/19/20 Na 135 mmol/L (136-145) L 11/18/20 K 3.7 mmol/L (3.5-5.1) 11/18/20 Cl 107 mmol/L (98-107) 11/18/20 CO2 20 mmol/L (21-32) L 11/18/20 BUN 10 mg/dl (7-18) 11/18/20 Creat 0.73 mg/dl (0.6-1.2) 11/18/20 Glucose Level 152 mg/dl (70-99) H 11/18/20 POC Glucose 89 mg/dl (70-99) 12/19/20 PT 9.6 Seconds (9.0-12.0) 11/28/20 PTT 23.9 Seconds (21.0-31.0) 11/28/20 INR 0.9 (0.9-1.1) 11/28/20 SARS-CoV-2, RNA, NAAT NEGATIVE (NEGATIVE) 12/19/20 Blood Type A Negative 11/28/20 Antibody Screen POSITIVE A 11/28/20 Testing Laboratory Results 12/19/20 05:34 12/19/20 05:41 POC Glucose 89
[2020-12-19] MEDS ORDERED: ONDANSETRON INJ 2 MG/ML 2 ML VIAL IV PRN (06:32)
[2020-12-19] MEDS ORDERED: ePHEDrine sulfate 50 MG/ML AMP IV PRN (06:32)
[2020-12-19] MEDS ORDERED: PROMETHAZINE HCL 6.25 MG in SODIUM CHLORIDE 0.9% 50 ML IV PRN (06:32)
[2020-12-19] MEDS ORDERED: MoRPHine SULFATE PF 1 MG/ML 10 ML AMP/VIAL INT SPINAL ONE (06:32)
[2020-12-19] MEDS ORDERED: MEPERIDINE HCL 25 MG/ML CARP/VIAL IV PRN (06:32)
[2020-12-19] MEDS ORDERED: LACTATED RINGER'S 500 ML IV PRN (06:32)
[2020-12-19] MEDS ORDERED: MoRPHine SULFATE 2 MG/ML CARP IV PRN (06:32)
[2020-12-19] MEDS ORDERED: NALOXONE HCL 0.4 MG/1 ML VIAL/CARP IV PRN (06:32)
[2020-12-19] MEDS ORDERED: NALOXONE HCL 0.08 MG in SYRINGE 1.8 ML IV PRN (06:32)
[2020-12-19] MEDS ORDERED: diphenhydrAMINE 50 MG/ML VIAL IV PRN (06:32)
[2020-12-19] MEDS ORDERED: NALOXONE HCL 1 MG in SODIUM CHLORIDE 0.9% 1000ML 1,000 ML IV PRN (06:32)
[2020-12-19] MEDS ORDERED: DC INTRASPINAL MORPHINE SCH (06:45)
[2020-12-19] MEDS ORDERED: NO NARCOTICS OR SEDATIVES SCH (06:45)
[2020-12-19] MEDS ORDERED: SODIUM CHLORIDE 0.9% 1000ML 1,000 ML IV SCH (06:45)
[2020-12-19] MEDS ORDERED: OXYTOCIN 10 UNITS/ML VIAL ONE (06:54)
[2020-12-19] MEDS ORDERED: fentaNYL citrate 100 MCG/2 ML VIAL ONE (06:56)
[2020-12-19] MEDS ORDERED: MoRPHine SULFATE PF 1 MG/ML 10 ML AMP/VIAL ONE (06:56)
[2020-12-19] MEDS ORDERED: ONDANSETRON INJ 2 MG/ML 2 ML VIAL ONE (07:37)
[2020-12-19] MEDS ORDERED: ePHEDrine sulfate 50 MG/ML SYR ONE (07:37)
[2020-12-19] MEDS ORDERED: PHENYLEPHRINE 100MCG/ML 5ML SYR ONE (07:54)
--- NOTE | 2020-12-19 08:03 | Post Operative Brief Note ---
PG Immediate Post Op with CF Date of Surgery December 19, 2020 Pre & Post Diagnosis Operation Date: 12/19/20 05:20 Pre-Op Diagnosis: (1) 38 weeks gestation of (2) PROM (3) Previous delivery affecting --desires repeat section (4) resulting from in vitro fertilization (5) Gestational diabetes mellitus during Post-Op Diagnosis: Same as pre op I identified the patient and participated in the time-out.: Yes Procedure Operation Date: 12/19/20 05:20 Actual Procedures p Repeat Low Transverse Section in LD(Bilateral) - Uzma Pettit MD, FACOG Surgeon Uzma Pettit MD, FACOG Group Dynamics Instructor RN Estimated Blood Loss 600 Findings Consistent with Post-Op Diagnosis (viable female apgars 8,9 normal uterus, tubes and ovaries bilaterally) Fluids 1500 Specimens Specimen Description: A: Placenta-hold B: cord blood Drains Shaver Catheter (placed after spinal, draingin clear yellow urine) Anesthesia Type Spinal Complications none Disposition Accompanied Patient To Recovery: No Disposition: L&D
--- NOTE | 2020-12-19 08:05 | Operative Report ---
PG Post Operative Report Pre & Post Diagnosis Operation Date: 12/19/20 05:20 Pre-Op Diagnosis: (1) 38 weeks gestation of (2) PROM (3) Previous delivery affecting --desires repeat section (4) resulting from in vitro fertilization (5) Gestational diabetes mellitus during Post-Op Diagnosis: Same as pre op I identified the patient and participated in the time-out.: Yes Procedure Operation Date: 12/19/20 05:20 Actual Procedures p Repeat Low Transverse Section in LD(Bilateral) - Uzma Pettit MD, FACOG Surgeon Uzma Pettit MD, FACOG Circular Knitter Helper RN Estimated Blood Loss 600 Findings Consistent with Post-Op Diagnosis (viable female apgars 8,9 normal uterus, tubes and ovaries bilaterally) Fluids 1500 Specimens placenta, hold cord blood Drains valdez Anesthesia Type Spinal Complications none Disposition Accompanied Patient To Recovery: No Disposition: L&D Indications 35yo at 38 weeks with PROM and planned repeat section. Description of Procedure The patient was taken to the operating room and identified. After adequate anesthesia was obtained, she was placed in the supine position with a leftward tilt on the operating table and prepped and draped in the usual sterile fashion. A valdez catheter had already been placed. The knife was used to create a Pfannensteil skin incision that was carried down to the underlying layer of fascia. The fascia was nicked in the midline and this opening was extended laterally using Wade scissors. Harris clamps were placed on the superior and inferior aspect of the fascial incision tenting it upward and the underlying re ctus muscles were dissected off the overlying fascia both sharply and bluntly using Wade scissors. The rectus muscles were bluntly in the midline. The peritoneal cavity was bluntly entered into. This opening was stretched. The bladder blade was placed. The vesicouterine peritoneum was elevated and opened up into and the bladder flap was created digitally and bladder blade was replace d. The knife was used to create a hysterotomy and this opening was stretched. The operators hand was placed through the hysterotomy and the bladder blade was removed. The head was elevated and flexed and with assistance from the vacuum and with fundal pressure the head was delivered. The shoulders and body were rapidly delivered. The cord was clamped and cut and the 's mouth and nares were bulb suction. The was handed off to the awaiting pediatricians. Cord blood was obtained. The placenta was manually expressed. The uterus was exteriorized and cleared of all clots and debris. Dilute IV Pitocin was begun. The uterine tone was improving. The hysterotomy was closed in a running interlocking fashion using 0 Vicryl followed by a second imbricating layer of 0 Vicryl. The hysterotomy was not hemostatic and therefore interrupted figure of eight sutures of 2-0 vicryl in usual fashion for excellent hemostasis. The uterus was returned to the abdomen. The gutters were cleared of all clots and debris. The hysterotomy was reinspected and noted to be hemostatic. The fascia was then closed in running fashion using 0 Vicryl. The subcutaneous fat was copiously irrigated and reapproximated using 2-0 chromic. The skin was closed in a subcuticular fashion using 4-0 Vicryl. At this point the procedure was terminated. The patient was transferred to the recovery room in stable condition. All sponge, lap and needle counts are correct x2. I attest to the content of the Intraoperative Record and any orders documented therein. Any exceptions are noted below. OB Procedure charges OB Charges 05666 C/S
[2020-12-19] MEDS ORDERED: CARBOPROST TROMETHAMINE 250 MCG/ML AMPUL IM ONE (08:37)
--- NOTE | 2020-12-19 09:03 | Anesthesiology Progress Note ---
Date of Service December 19, 2020 Anesthesia Post Procedure Vital Signs Vital Signs: Temp Pulse Resp BP Pulse Ox 12/19/20 08:57 89 100 12/19/20 08:53 87 132/61 12/19/20 08:52 87 98 12/19/20 08:50 20 12/19/20 08:47 74 98 12/19/20 08:43 75 115/64 12/19/20 08:42 78 99 12/19/20 08:40 20 12/19/20 08:37 83 99 12/19/20 08:33 88 124/57 L 12/19/20 08:32 90 98 12/19/20 08:30 20 12/19/20 08:27 88 97 12/19/20 08:22 72 117/56 L 98 12/19/20 08:20 20 12/19/20 08:17 77 99 12/19/20 08:13 75 113/56 L 12/19/20 08:12 76 98 12/19/20 08:10 97.7 F 78 117/56 L 98 12/19/20 06:55 98.6 F 12/19/20 06:49 81 112/75 12/19/20 05:52 98.2 F 18 12/19/20 05:07 77 137/83 Transfer of Care Handoff Completed per policy Notes Mental Status: alert / awake / arousable and participated in evaluation Nausea / Vomiting: adequately controlled Pain: adequately controlled Airway Patency, RR, SpO2: stable & adequate BP & HR: stable & adequate Hydration State: stable & adequate Neuraxial Anesthesia: was administered and sensory block is resolving Anesthetic Complications: no major complications apparent and Pt Satisfied with anesthetic care
[2020-12-19] MEDS: KETOROLAC 30 MG/ML VIAL IV PRN ×2 (10:00→18:31)
[2020-12-19] MEDS ORDERED: BENZOCAINE 20% AER SPR 82.5 GM CAN EXT PRN (10:42)
[2020-12-19] MEDS ORDERED: SUPERCREAM 0.870% 15 GM JAR EXT PRN (10:42)
[2020-12-19] MEDS ORDERED: DIPHTHERIA/TETANUS/PERTUSSIS 0.5 ML SYR/VIAL IM ONE (10:42)
[2020-12-19] MEDS ORDERED: ACETAMINOPHEN 325 MG TAB PO PRN (10:42)
[2020-12-19] MEDS ORDERED: MAGNESIUM HYDROXIDE SUSP 30 ML UDC PO PRN (10:42)
[2020-12-19] MEDS ORDERED: SENNA 8.6 MG TAB PO PRN (10:42)
[2020-12-19] MEDS ORDERED: HYDROCORTISONE ACETATE 25 MG SUPP PR PRN (10:42)
[2020-12-19] MEDS: OXYTOCIN 20 UNITS in LACTATED RINGER'S 1,000 ML IV SCH ×2 (11:30→20:04)
[2020-12-19] MEDS ORDERED: SERTRALINE HCL 50 MG TABLET PO SCH (14:00)
[2020-12-19] MEDS ORDERED: FLUTICASONE PROPIONATE NA SPR 16 GM BTL SCH (14:00)
[2020-12-19] MEDS: SIMETHICONE 80 MG CHEW PO SCH ×3 (14:05→20:51)
[2020-12-19] MEDS ORDERED: Nursing to Pharmacy Communication SCH (14:15)
[2020-12-19] MEDS: HYDROmorphone INJ 0.5 MG/0.5 ML SYR IV PRN ×2 (15:05→20:05)
[2020-12-19] MEDS: FLUTICASONE PROPIONATE NA SPR 16 GM BTL SCH (15:52)
[2020-12-19] MEDS ORDERED: TRIAMCINOLONE ACET 0.1% CR 15 GM TUBE EXT PRN (20:02)
[2020-12-19] MEDS: DOCUSATE SODIUM 100 MG CAP PO SCH (20:51)
[2020-12-19] MEDS: SERTRALINE HCL 50 MG TABLET PO SCH (20:51)
[2020-12-20] MEDS ORDERED: ZOLPIDEM TARTRATE 5 MG TAB PO PRN (00:32)
[2020-12-20] MEDS ORDERED: KETOROLAC 30 MG/ML VIAL IV PRN (00:32)
[2020-12-20] MEDS ORDERED: PROMETHAZINE HCL 25 MG in SODIUM CHLORIDE 0.9% 50 ML IV PRN (00:32)
[2020-12-20] MEDS ORDERED: ONDANSETRON INJ 2 MG/ML 2 ML VIAL IV PRN (00:32)
[2020-12-20] MEDS ORDERED: diphenhydrAMINE Capsule 25 MG CAP PO PRN (00:32)
[2020-12-20] MEDS ORDERED: diphenhydrAMINE 50 MG/ML VIAL IV PRN (00:32)
[2020-12-20] MEDS: oxyCODONE/ACETAMINOPHEN 5mg/325mg TAB PO PRN ×6 (00:41→20:14)
[2020-12-20] MEDS: IBUPROFEN 600 MG TAB PO PRN ×6 (00:41→20:13)
[2020-12-20 06:11] LABS: Eosinophils # (auto) 0.03 K/uL (0-0.5); Eosinophils % (auto) 0.3 %; Hematocrit (blood only) 28.6 % (37-47); Hemoglobin 9.7 g/dL (12.0-16.0); Immature Granulocytes # (auto) 0.03 K/uL (0.00-0.02); Immature Granulocytes % (auto) 0.3 %; Lymphocytes # (auto) 1.17 K/uL (1.2-3.4); Lymphocytes % (auto) 12.7 %; Mean Corpuscular Hemoglobin 28.9 pg (25-34); Mean Corpuscular Hgb Conc 33.9 g/dL (32-36); Mean Corpuscular Volume 85.1 fL (80-100); Mean Platelet Volume 11.7 fL (7.4-10.4); Monocytes # (auto) 0.52 K/uL (0.11-0.59); Monocytes % (auto) 5.6 %; Neutrophils # (auto) 7.48 K/uL (1.4-6.5); Neutrophils % (auto) 81.1 %; Platelet Count 131 K/uL (130-400); RDW Coefficient of Variation 14.5 % (11.5-14.5); RDW Standard Deviation 44.9 fL (36.4-46.3); Red Blood Count 3.36 M/uL (4.2-5.4); White Blood Count 9.23 K/uL (4.8-10.8)
--- NOTE | 2020-12-20 07:17 | Obstetrical Progress Note ---
Date of Service December 20, 2020 Assessment & Plan (1) examination following delivery: stable, routine care. will need rhophylac. trying to pump. bottle feeding. rh neg, ri. hgb noted. will recheck tomorrow. Day #:: 1 Subjective Ambulation: ambulating normally Voiding: no voiding problems Diet Tolerance:: regular diet Lochia:: Small Feeding Type:: bottle feeding doing well, no pain issues. bottle feeding but trying to pump as well. per chart baby rh pos, so pt will need rhophylac Physical Exam Constitutional WD/WN, vitals as above Respiratory normal respiratory effort, lungs clear to auscultation Cardiovascular Rate/Rhythm: regular rate and regular rhythm Gastrointestinal (Abdomen) Inspection/Auscultation: abdomen normal to inspection and + abdominal surgical incision (incision c/d/i ) Percussion/Palpation: abdomen soft; abdomen nontender Fundus firm 2cm down Musculoskeletal nt calves [] edema Skin no rashes, warm and dry Neurologic grossly normal Psychiatric A+Ox3, euthymic affect Results & Data ([facility]) Vital Signs (Past 12 Hours) Vital Signs Temp Pulse Resp BP Pulse Ox 12/20/20 04:20 97.5 F L 90 16 109/72 96 12/20/20 00:30 98.4 F 110 H 16 101/66 96 12/19/20 23:00 16 97 12/19/20 22:30 16 96 12/19/20 21:30 18 96 12/19/20 20:30 16 96 12/19/20 19:50 98.2 F 93 H 18 119/75 97
[2020-12-20] MEDS: PRENATAL VITAMIN 1 TAB PO SCH (08:11)
[2020-12-20] MEDS: DOCUSATE SODIUM 100 MG CAP PO SCH ×2 (08:11→20:13)
[2020-12-20] MEDS: FERROUS SULFATE 325 MG TAB PO SCH (08:11)
[2020-12-20] MEDS: SIMETHICONE 80 MG CHEW PO SCH ×4 (08:11→20:13)
[2020-12-20] MEDS: FLUTICASONE PROPIONATE NA SPR 16 GM BTL SCH (08:12)
[2020-12-20] MEDS: SERTRALINE HCL 50 MG TABLET PO SCH (20:13)
[2020-12-21] MEDS: IBUPROFEN 600 MG TAB PO PRN ×3 (00:13→08:21)
[2020-12-21] MEDS: oxyCODONE/ACETAMINOPHEN 5mg/325mg TAB PO PRN ×3 (00:14→10:02)
[2020-12-21 05:48] LABS: Hematocrit (blood only) 28.3 % (37-47); Hemoglobin 9.4 g/dL (12.0-16.0)
--- NOTE | 2020-12-21 05:49 | Obstetrical Progress Note ---
Date of Service <Lindsey Davis DO - Last Filed: 12/21/20 06:56> December 21, 2020 Assessment & Plan <Lindsey Davis DO - Last Filed: 12/21/20 06:56> (1) examination following delivery: 35 yo mother now day #2 following elective RLTCS of term infant. Maternal history insulin-dependent GDM, normal BSGs . No complications. Hgb trend 12.8->9.7->9.4 following . Bottle feeding without issues. Voiding and passing gas, ambulating. Pain under reasonable control with prn Tylenol/ibuprofen/Percocet. Will need prescription for short-course Percocet to [facility]. Desires discharge today. Day #:: 2 Subjective <Lindsey Davis DO - Last Filed: 12/21/20 06:56> Ambulation: ambulating normally Voiding: no voiding problems Passing Gas:: Yes Diet Tolerance:: regular diet Lochia:: Small Feeding Type:: bottle feeding 35 yo mother POD #2 following RLTCS; without complaints and doing well today. Voiding and passing gas, ambulating. Bottle feeding without issue. Physical Exam <Lindsey Davis DO - Last Filed: 12/21/20 06:56> General: patient is alert and oriented, in NAD Cardiac: +S1/S2, no murmurs rubs or gallops Respiratory: lungs CTA b/l, no wheezes rales or rhonchi, no increased work of breathing, symmetric chest rise, no respiratory distress Abdomen: soft, NT, +bowel sounds Uterus: uterine fundus firm, palpable below the umbilicus. Incision intact, non- tender, non-erythematous, no weeping from incision site Lower Extremities: no LE edema or swelling, no deep calf pain, Davey's sign negative b/l Results & Data ([facility]) <Lindsey Davis DO - Last Filed: 12/21/20 06:56> Vital Signs (Past 12 Hours) Vital Signs Temp Pulse Pulse Resp BP Pulse Ox 12/21/20 00:15 36.5 C 75 75 18 124/83 98 12/20/20 19:40 36.5 C 82 82 16 134/84 <Ann Marie Ho MD - Last Filed: 12/21/20 07:34> Co-Signing Physician Notes Resident Physician Supervision Note: I interviewed and examined the patient. Discussed with Dr. Davis and agree with findings and plan as documented in the note. Any exceptions or clarifications are listed here: PP2 from rLTCS, meeting all milestones. VSS, exam benign and wnl. Stable for d/c home today, s/p rhogam Documented By: Ann Marie Ho MD Resident Activity Tracking <Lindsey Davis DO - Last Filed: 12/21/20 06:56> Resident Involvement: Resident Care Provided Care Provided: OB Delivery
[2020-12-21] MEDS: SIMETHICONE 80 MG CHEW PO SCH (08:21)
[2020-12-21] MEDS: PRENATAL VITAMIN 1 TAB PO SCH (08:21)
[2020-12-21] MEDS: FERROUS SULFATE 325 MG TAB PO SCH (08:21)
[2020-12-21] MEDS: DOCUSATE SODIUM 100 MG CAP PO SCH (08:21)
--- NOTE | 2020-12-23 09:03 | Discharge Summary ---
Date of Service Date of admission: December 19, 2020 Date of discharge: December 21, 2020 Admission HPI Per Admitting Provider 35yo at 38+wks darci presents to L&D with cc of leaking fluid since 0200am today, some white flecks in it. Notes was feeling some trickling yesterday [place] and so thought she was just sweating. This am felt a gush at 2am and has continued. Sees white flecks in the fluid. Denies pain. She says discharge was pinkish but no maxime bleeding. +FM. PNC c/b 1. Prior c/s for twins, desires repeat c/s 2. IVF/ICSI 3. GDM, diet controlled--although chart indicates was asked to start bedtime insulin but refused. 4. 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 Rh negative PNL Rh neg, RI, GBS neg OBH: 36wk twin c/s Discharge Data Consultations 12/19/20 05:16 Consult Anesthesiology Stat Procedures Performed Operation Date: 12/19/20 05:20 Actual Procedures p Repeat Low Transverse Section in LD delivery of live female baby at 0730 - Uzma Pettit MD, [facility] Course (1) H/O section: (2) PROM (premature rupture of membranes): The patient underwent the above stated procedure without incident and her postoperative course and recovery was uncomplicated. On her postoperative day #2 she was tolerating a regular diet, voiding spontaneously, ambulating without problem and was using oral meds for adequate pain control. Her postoperative hemoglobin was 9.4. She was given written and verbal discharge instructions and told to followup in office at 6wks. She was given appropriate pain medicine prescriptions. Coding Level of Care Code None Diagnoses H/O section Z98.891 PROM (premature rupture of membranes) O42.90
== END 2020-12-21 10:05 | disposition home or self-care (01) | DRG 788 ==
LOC: OPB 04:50 → 4S1 04:54 → 4S2 11:10